=== PATIENT | female | born 1930 | race African-American/Black ===

== ENCOUNTER 2016-07-04 03:40 | Inpatient (IN) | payer MEDICARE, BC ==
[~2016-07-04] VITALS: Ht 165.1 cm; Wt 83.9 kg
[2016-07-04 04:00] VITALS: BP 149/74
[2016-07-04] MEDS ORDERED: ADALAT20 MG ORAL (05:14)
[2016-07-04] MEDS ORDERED: PLAVIX75 MG ORAL (05:14)
[2016-07-04] MEDS ORDERED: LOVASTATIN40 MG ORAL (05:14)
[2016-07-04] MEDS ORDERED: DIOVAN160 MG ORAL (05:14)
[2016-07-04] MEDS ORDERED: ASPIRIN81 MG ORAL (05:14)
[2016-07-04] MEDS ORDERED: HYDROCHLOROTH12.5 M2 ORAL (05:14)
[2016-07-04] MEDS ORDERED: LANTUS SOL100 UNIT/1 SUBQ (05:14)
[2016-07-04] MEDS ORDERED: Ketorolac 30mg Inj IV PRN (06:15)
[2016-07-04] MEDS ORDERED: Miralax 17gm pkt ORAL PRN (06:15)
[2016-07-04] MEDS ORDERED: Morphine Sulfate 2mg/ml Inj IVP PRN (06:15)
[2016-07-04] MEDS ORDERED: Nitroglycerin Subl 0.4mg tab (Bottle Of 25) SL PRN (06:15)
[2016-07-04] MEDS ORDERED: Mylanta II UD 30ml ORAL PRN (06:15)
[2016-07-04] MEDS: NovoLOG Insulin Flexpen SUBQ SCH ×4 (06:27→21:00)
[2016-07-04 08:00] VITALS: BP 138/70
--- NOTE | 2016-07-04 08:54 | Diagnostic Imaging Report ---
Indication: Shortness of breath Technique: XRAY CHEST 1 V Comparison: None Findings: Cardiac silhouette is mildly prominent. There is no consolidation. There is a linear opacity of the right midlung which could represent atelectasis or fissural thickening. There is no pneumothorax or obvious effusion. Degenerative changes of the spine are seen. Impression: Linear opacity of the right midlung which could represent atelectasis or fissural thickening. Otherwise no obvious acute cardiopulmonary disease.
[2016-07-04 10:44] LABS: BASOPHILS % (AUTO) 1.6 % (0.0-2.0); LYMPHOCYTES % (AUTO) 31.3 % (20.0-45.0); MEAN CORPUSCULAR HEMOGLOBIN 29.6 PG (27.0-31.0); MEAN CORPUSCULAR HGB CONC 31.9 G/DL (32.0-36.0); MEAN CORPUSCULAR VOLUME 93 FL (80-99); MEAN PLATELET VOLUME 5.3 FL (6.5-10.1); MONOCYTES % (AUTO) 8.8 % (1.0-10.0); NEUTROPHILS % (AUTO) 53.3 % (45.0-75.0); PLATELET COUNT 234 K/UL (150-450); RED BLOOD COUNT 3.15 M/UL (4.20-5.40); RED CELL DISTRIBUTION WIDTH 12.5 % (11.6-14.8); WHITE BLOOD COUNT 5.9 K/UL (4.8-10.8)
[2016-07-04 11:13] LABS: ALANINE AMINOTRANSFERASE 10 U/L (3-33); ALBUMIN/GLOBULIN RATIO 1.6 (1.0-2.7); ANION GAP 18 (5-15); ASPARTATE AMINO TRANSFERASE 14 U/L (5-40); CALCIUM 9.1 mg/dL (8.6-10.2); CARBON DIOXIDE 19 mEQ/L (20-30); CHLORIDE 104 mEQ/L (98-107); CREATININE 2.8 mg/dL (0.5-0.9); HEMOLYSIS 3; SODIUM 141 mEQ/L (135-145); TOTAL PROTEIN 6.3 g/dL (6.6-8.7); TROPONIN I < 0.30 ng/mL (<=0.30)
[2016-07-04 11:15] LABS: AMYLASE 41 U/L (10-110); LIPASE 11 U/L (< 60)
[2016-07-04 12:30] VITALS: BP 148/73
[2016-07-04] MEDS ORDERED: Aspirin Baby 81mg ORAL SCH (13:00)
[2016-07-04 16:00] VITALS: BP 138/66
--- NOTE | 2016-07-04 17:27 | History & Physical ---
History and Physical History & Physicial Dictated for Int Med-Dr Angeles no. [id number]. LEANDRA COSTELLO Jul 04, 2016 17:27
[2016-07-04 18:40] LABS: ANION GAP 15 (5-15); CALCIUM 8.9 mg/dL (8.6-10.2); CARBON DIOXIDE 20 mEQ/L (20-30); CHLORIDE 106 mEQ/L (98-107); CREATININE 2.9 mg/dL (0.5-0.9); HEMOLYSIS 4; POTASSIUM 4.9 mEQ/L (3.4-4.9); SODIUM 141 mEQ/L (135-145)
[2016-07-04 20:00] VITALS: BP 135/76
[2016-07-04] MEDS ORDERED: Atorvastatin 20mg tab ORAL SCH (21:00)
[2016-07-04] MEDS ORDERED: Heparin 5000 units/ml inj SUBQ SCH (21:00)
[2016-07-04] MEDS ORDERED: Miralax 17gm pkt ORAL SCH (21:00)
[2016-07-04] MEDS ORDERED: Levemir Flexpen SUBQ SCH (21:00)
[2016-07-05] VITALS: BP 127/60
--- NOTE | 2016-07-05 02:08 | Consultation ---
DATE OF CONSULTATION: 07/04/2016 CHIEF COMPLAINT: Constipation and abdominal pain. HISTORY OF PRESENT ILLNESS: This is a very pleasant 85-year-old female, admitted to the hospital with mainly complaint of chest pain, which at this time she denies any more. She has history of diabetes, high blood pressure, chronic constipation, and GI consult was requested for evaluation of the above. PAST MEDICAL HISTORY: 1. Chronic constipation. 2. Hypertension. 3. Diabetes. 4. Chronic renal insufficiency per patient. 5. Anemia per patient. PAST SURGICAL HISTORY: 1. Tubal ligation. 2. Hysterectomy. MEDICATIONS: Please see medication reconciliation list. ALLERGIES: To penicillin. SOCIAL HISTORY: The patient used to smoke for over 30 years, quit in 1987. Denies any alcohol or drug abuse. FAMILY HISTORY: Noncontributory. REVIEW OF SYSTEMS: A 10-point review of system was performed and pertinent positives in history of present illness. PHYSICAL EXAMINATION: GENERAL: This is a well-developed female. VITAL SIGNS: Temperature 97.7 degrees, pulse 75, respirations 22, and blood pressure 149/74. HEENT: Normocephalic and atraumatic. Sclerae anicteric. NECK: Supple. No evidence of lymphadenopathy. CARDIOVASCULAR: Regular rhythm. Plus S1 and S2. No obvious murmur. LUNGS: Clear to auscultation bilaterally. ABDOMEN: Positive bowel sounds. Soft and nontender. No rebound. No guarding. No peritoneal sign. EXTREMITIES: No cyanosis, no clubbing, no edema. LABORATORY DATA: Laboratories are pending. ASSESSMENT AND PLAN: 1. Anemia. 2. Renal insufficiency. 3. Hypertension. 4. Diabetes. 5. Chronic constipation. PLAN: 1. Start 1800 ADA diet. 2. Anemia workup. 3. Follow with Cardiology regarding chest pain. 4. Follow laboratories and make further recommendation when the laboratories are back. Hemal Narvaez M.D. DR: DANIEL JOB#: [id number] CC:
[2016-07-05] MEDS ORDERED: Nitroglycerin Subl 0.4mg tab (Bottle Of 25) SL PRN (03:30)
[2016-07-05 04:00] VITALS: BP 127/65
[2016-07-05] MEDS ORDERED: Morphine Sulfate 2mg/ml Inj IVP PRN (05:00)
[2016-07-05] MEDS ORDERED: Ketorolac 30mg Inj IV PRN (06:15)
[2016-07-05] MEDS ORDERED: Miralax 17gm pkt ORAL PRN (06:15)
[2016-07-05] MEDS ORDERED: Mylanta II UD 30ml ORAL PRN (06:15)
[2016-07-05] MEDS: NovoLOG Insulin Flexpen SUBQ SCH ×4 (06:28→21:00)
--- NOTE | 2016-07-05 07:07 | History and Physical Report ---
DATE OF ADMISSION: 07/04/2016 CHIEF COMPLAINT: The patient is an 85-year-old female, presents with complaint of chest pain. HISTORY OF PRESENT ILLNESS: On July 03, 2016, the patient began to experience some substernal chest pain. The pain did not radiate to the jaw or to the shoulder. The patient presented to [facility]. Initial troponin level was within normal limits. The patient is transferred to [facility] for insurance reasons. The patient is admitted for chest pain to rule out acute coronary syndrome. REVIEW OF SYSTEMS: Constitutional: The patient denies weight loss or weight gain. The patient denies fevers or chills. HEENT: The patient denies ear or throat pain. Cardiovascular: The patient complains of chest pain as above. The patient denies palpitations. Abdomen: The patient denies nausea, vomiting, diarrhea, or constipation. Genitourinary: The patient denies dysuria or increased frequency of urination. Neurologic: The patient denies seizures or generalized weakness. PAST MEDICAL HISTORY: Significant for: 1. Hypertension. 2. Diabetes type 2. 3. Anemia. 4. Hypercholesterolemia. PAST SURGICAL HISTORY: Significant for total abdominal hysterectomy. CURRENT MEDICATIONS: 1. [place] 5/325 mg one tablet p.o. every 4 hours as needed. 2. Nifedipine of an unknown dose daily. 3. Plavix 75 mg one tablet p.o. daily. 4. Mevacor 40 mg one tablet p.o. daily. 5. Hydrochlorothiazide 12.5 mg one tablet p.o. daily. 6. Lantus insulin of an unknown dose by p.o. daily. 7. Diovan 160 mg 1 tablet by mouth daily. 8. Ultram 50 mg one tablet p.o. every 4 hours as needed. 9. Antivert 25 mg one tablet p.o. 3 times daily as needed. ALLERGIES: Penicillin. SOCIAL HISTORY: The patient is single. The patient denies tobacco or alcohol use. PHYSICAL EXAMINATION: VITAL SIGNS: Temperature 97.3, pulse 73, blood pressure 138/70, respiratory 20. GENERAL: The patient is well-developed and well-nourished female, no apparent distress. HEENT: Eyes, pupils are equal and responsive to light and accommodation. Extraocular movements are intact. NECK: Supple. No lymphadenopathy. CHEST: Lungs are clear to auscultation bilaterally without wheezes or rales. CARDIOVASCULAR: Regular rhythm and rate. S1 and S2 normal without murmurs, rubs, or gallops. ABDOMEN: Soft, nontender, and nondistended. Positive bowel sounds. No evidence of hepatosplenomegaly. Currently, no guarding. EXTREMITIES: Negative for clubbing, cyanosis, or edema. RECTAL/GENITAL: Refused. NEUROLOGIC: Cranial nerves II through XII are grossly intact without focal deficits. Motor strength is 5/5 bilaterally. Deep tendon reflexes 2+ plantar. LABORATORY STUDIES: WBC 5.9, hemoglobin 9.2, hematocrit 29.3, and platelets 234,000. Sodium 141, potassium elevated at 5.0, chloride 104, CO2 19, BUN 31, creatinine 2.8, glucose 97, and serum troponin level less than 0.3. ASSESSMENT: This is an 85-year-old female: 1. Chest pain. 2. Diabetes type 2. 3. Hypertension. 4. Hypercholesterolemia. 5. Renal failure. TREATMENT: 1. Chest pain. Cardiology consultation by Dr. Franklin Ceron. Serial troponin levels will be run. A Cardiolite stress test is pending. We will follow recommendations of Cardiology. 2. Diabetes type 2. The patient has been placed on a NovoLog sliding scale. Accu-Cheks will be for performed daily and at bedtime. 3. Hypertension. Continue nifedipine and Avapro as above. 4. Hypercholesterolemia. Continue Mevacor as above. 5. Renal failure. A renal ultrasound is pending. A Nephrology consultation with Dr. Brasher. This may be prerenal secondary to dehydration. The patient is currently receiving intravenous fluids. We will follow recommendation of Nephrology. Spencer Lopez M.D. DR: Susanne JOB#: [id number] CC:
[2016-07-05 07:54] LABS: BASOPHILS % (AUTO) 1.3 % (0.0-2.0); LYMPHOCYTES % (AUTO) 31.8 % (20.0-45.0); MEAN CORPUSCULAR HEMOGLOBIN 29.9 PG (27.0-31.0); MEAN CORPUSCULAR VOLUME 93 FL (80-99); MEAN PLATELET VOLUME 5.8 FL (6.5-10.1); NEUTROPHILS % (AUTO) 52.9 % (45.0-75.0); PLATELET COUNT 250 K/UL (150-450); RED BLOOD COUNT 3.12 M/UL (4.20-5.40); RED CELL DISTRIBUTION WIDTH 12.4 % (11.6-14.8)
[2016-07-05 08:00] VITALS: BP 140/71
[2016-07-05 08:02] LABS: PROTHROMBIN TIME 10.1 SEC (9.30-11.50)
[2016-07-05 08:28] LABS: ALANINE AMINOTRANSFERASE 10 U/L (3-33); ALBUMIN/GLOBULIN RATIO 1.2 (1.0-2.7); AMYLASE 48 U/L (10-110); ANION GAP 18 (5-15); ASPARTATE AMINO TRANSFERASE 15 U/L (5-40); CARBON DIOXIDE 19 mEQ/L (20-30); CHLORIDE 105 mEQ/L (98-107); HEMOLYSIS 3; LIPASE 12 U/L (< 60); POTASSIUM 4.8 mEQ/L (3.4-4.9); SODIUM 142 mEQ/L (135-145)
[2016-07-05 08:32] LABS: HEMOLYSIS 4; IRON 48 ug/dL (37-145); TOTAL IRON BINDING CAPACITY 227 ug/dL (250-400)
[2016-07-05 08:49] LABS: BILIRUBIN,DIRECT 0.1 mg/dL (0.1-0.3); TOTAL PROTEIN 6.5 g/dL (6.6-8.7)
[2016-07-05 08:53] LABS: TROPONIN I < 0.30 ng/mL (<=0.30)
[2016-07-05 08:55] LABS: HEMOGLOBIN A1C 5.3 % (< 6.0)
[2016-07-05] MEDS ORDERED: Irbesartan 150mg tablet ORAL SCH (09:00)
[2016-07-05] MEDS: Irbesartan 150mg tablet ORAL SCH (09:44)
[2016-07-05] MEDS: Aspirin Baby 81mg ORAL SCH (09:44)
[2016-07-05] MEDS: Heparin 5000 units/ml inj SUBQ SCH ×2 (09:46→21:52)
[2016-07-05 12:00] VITALS: BP 142/72
--- NOTE | 2016-07-05 12:01 | GI Progress Note ---
Assessment/Plan Problems: (1) Constipated ICD Codes: K59.00 - Constipation, unspecified SNOMED: 37901473 (2) Anemia ICD Codes: D64.9 - Anemia, unspecified SNOMED: 368009898 (3) Diabetes mellitus ICD Codes: E11.9 - Type 2 diabetes mellitus without complications SNOMED: 68400999 (4) Intractable abdominal pain ICD Codes: R10.9 - Unspecified abdominal pain SNOMED: 17671686, 777904112 Status: stable, unchanged Status Narrative Discussed with Dr. Narvaez. Assessment/Plan ASSESSMENT AND PLAN: 1. Anemia. 2. Renal insufficiency. 3. Hypertension. 4. Diabetes. 5. Chronic constipation. PLAN: possible EGD/colonoscopy Tuesday pending stress test ADA diet bowel regime OB stool uncollected H2 fu labs Subjective Gastrointestinal/Abdominal: Reports: constipated Objective Last 24 Hour Vital Signs Date Time Temp Pulse Resp B/P Pulse Ox O2 Delivery O2 Flow Rate FiO2 07/05/16 10:27 69 140/71 07/05/16 10:26 69 140/71 07/05/16 09:44 140/71 07/05/16 08:00 68 07/05/16 08:00 97.2 69 17 140/71 99 Room Air 07/05/16 04:00 67 07/05/16 04:00 97.9 74 16 127/65 98 Room Air 07/05/16 00:00 97.3 67 18 127/60 100 Room Air 07/05/16 00:00 68 07/04/16 20:00 97.3 76 15 135/76 100 Room Air 07/04/16 20:00 75 07/04/16 16:00 68 07/04/16 16:00 96.6 71 15 138/66 98 Room Air 07/04/16 13:18 74 148/73 07/04/16 12:30 97.7 74 20 148/73 98 Room Air 07/04/16 12:00 74 Intake and Output 07/04/16 07/05/16 19:00 07:00 Intake Total 1120 ml 325 ml Output Total 750 ml Balance 370 ml 325 ml Intake Oral 460 ml IV Total 650 ml 325 ml Other 10 ml Output Urine Total 750 ml # Voids 3 3 Laboratory Tests Test 07/04/16 17:40 07/05/16 06:50 Sodium Level 141 mEQ/L (135-145) 142 mEQ/L (135-145) Potassium Level 4.9 mEQ/L (3.4-4.9) 4.8 mEQ/L (3.4-4.9) Chloride Level 106 mEQ/L (98-107) 105 mEQ/L (98-107) Carbon Dioxide Level 20 mEQ/L (20-30) 19 mEQ/L (20-30) L Anion Gap 15 (5-15) 18 (5-15) H Blood Urea Nitrogen 35 mg/dL (7-23) H 37 mg/dL (7-23) H Creatinine 2.9 mg/dL (0.5-0.9) H 3.0 mg/dL (0.5-0.9) H Estimat Glomerular Filtration Rate mL/min (>60) mL/min (>60) Glucose Level 114 mg/dL (74-106) H 72 mg/dL (74-106) L Calcium Level 8.9 mg/dL (8.6-10.2) 9.0 mg/dL (8.6-10.2) White Blood Count 6.0 K/UL (4.8-10.8) Red Blood Count 3.12 M/UL (4.20-5.40) L Hemoglobin 9.3 G/DL (12.0-16.0) L Hematocrit 29.2 % (37.0-47.0) L Mean Corpuscular Volume 93 FL (80-99) Mean Corpuscular Hemoglobin 29.9 PG (27.0-31.0) Mean Corpuscular Hemoglobin Concent 32.0 G/DL (32.0-36.0) Red Cell Distribution Width 12.4 % (11.6-14.8) Platelet Count 250 K/UL (150-450) Mean Platelet Volume 5.8 FL (6.5-10.1) L Neutrophils (%) (Auto) 52.9 % (45.0-75.0) Lymphocytes (%) (Auto) 31.8 % (20.0-45.0) Monocytes (%) (Auto) 9.0 % (1.0-10.0) Eosinophils (%) (Auto) 5.0 % (0.0-3.0) H Basophils (%) (Auto) 1.3 % (0.0-2.0) Prothrombin Time 10.1 SEC (9.30-11.50) Prothromb Time International Ratio 1.0 (0.9-1.1) Activated Partial Thromboplast Time 25 SEC (23-33) Hemoglobin A1c 5.3 % (< 6.0) Iron Level 48 ug/dL (37-145) Total Iron Binding Capacity 227 ug/dL (250-400) L Percent Iron Saturation 21 % (15-50) Unsaturated Iron Binding 179 ug/dL (112-346) Total Bilirubin 0.2 mg/dL (0.0-1.2) Direct Bilirubin 0.1 mg/dL (0.1-0.3) Aspartate Amino Transf (AST/SGOT) 15 U/L (5-40) Alanine Aminotransferase (ALT/SGPT) 9 U/L (3-33) Alkaline Phosphatase 73 U/L (35-104) Troponin I < 0.30 ng/mL (<=0.30) Total Protein 6.5 g/dL (6.6-8.7) L Albumin 4.0 g/dL (3.5-5.2) Globulin 3.1 g/dL Albumin/Globulin Ratio 1.2 (1.0-2.7) Amylase Level 48 U/L (10-110) Lipase 12 U/L (< 60) Thyroid Stimulating Hormone (TSH) 3.110 uIU/mL (0.300-4.500) Height (Feet): 5 Height (Inches): 5.00 Weight (Pounds): 185 General Appearance: no apparent distress, alert Cardiovascular: normal rate Respiratory/Chest: lungs clear, normal breath sounds Abdominal Exam: non tender, soft Priscila Freeman N.PBritney Jul 05, 2016 12:01
--- NOTE | 2016-07-05 12:50 | Internal Med Progress Note ---
Subjective Date of Service: Jul 05, 2016 Physician Name Leandra Costello Attending Physician Joe Angeles MD Current Medications Medications (Trade) Dose Ordered Sig/Bryce Route PRN Reason Start Time Stop Time Status Last Admin Dose Admin Acetaminophen (Tylenol) 650 mg Q4H PRN ORAL fever 07/05/16 06:15 08/04/16 06:14 Al Hydroxide/Mg Hydroxide (Mylanta II) 30 ml Q6H PRN ORAL dyspepsia 07/05/16 06:15 08/04/16 06:14 Aspirin (ASA) 81 mg DAILY ORAL 07/05/16 09:00 08/04/16 08:59 07/05/16 09:44 Atorvastatin Calcium (Lipitor) 20 mg BEDTIME ORAL 07/05/16 21:00 08/04/16 20:59 Clopidogrel Bisulfate (Plavix) 75 mg DAILY ORAL 07/05/16 09:00 08/04/16 08:59 07/05/16 09:44 Dextrose (Dextrose 50%) STAT PRN IV Hypoglycemia 07/05/16 06:15 08/04/16 06:14 Diphenhydramine HCl (Benadryl) 25 mg Q6H PRN ORAL Itching/Pruritis 07/05/16 06:15 08/04/16 06:14 Docusate Sodium (Colace) 100 mg THREE TIMES A DAY ORAL 07/05/16 13:00 08/04/16 12:59 Famotidine (Pepcid I.v.) 20 mg Q12HR IVP 07/05/16 21:00 08/04/16 20:59 Heparin Sodium (Porcine) (Heparin 5000 units/ml) 5,000 units EVERY 12 HOURS SUBQ 07/05/16 09:00 08/04/16 08:59 07/05/16 09:46 Hydrochlorothiazide (Hydrodiuril) 12.5 mg DAILY ORAL 07/05/16 09:00 08/04/16 08:59 07/05/16 09:43 Insulin Aspart (NovoLOG) BEFORE MEALS AND HS SUBQ 07/05/16 06:30 08/04/16 06:29 Insulin Detemir (Levemir) 10 units BEDTIME SUBQ 07/05/16 21:00 08/04/16 20:59 Irbesartan (Avapro) 150 mg DAILY ORAL 07/05/16 09:00 08/04/16 08:59 07/05/16 09:44 Ketorolac Tromethamine (Toradol 30mg) 15 mg Q6H PRN IV moderate pian 4-6 07/05/16 06:15 07/10/16 06:14 UNV Morphine Sulfate (Morphine Sulfate) 2 mg Q4H PRN IVP severe Pain (Pain Scale 7-10) 07/05/16 05:00 07/12/16 04:59 Nifedipine (Procardia XL) 90 mg DAILY ORAL 07/05/16 11:00 08/04/16 10:59 07/05/16 10:27 Nitroglycerin (Ntg) 0.4 mg Q5M X 3 DOSES PRN SL Prn Chest Pain 07/05/16 03:30 08/04/16 03:29 Ondansetron HCl (Zofran) 4 mg Q6H PRN IVP Nausea & Vomiting 07/05/16 06:15 08/04/16 06:14 Polyethylene Glycol (Miralax) 17 gm BEDTIME ORAL 07/05/16 21:00 08/04/16 20:59 Polyethylene Glycol (Miralax) 17 gm HSPRN PRN ORAL Constipation 07/05/16 06:15 08/04/16 06:14 Sodium Chloride (Sodium Chloride 1000ml bag) 1,000 ml @ 50 mls/hr Q20H IV 07/05/16 03:30 08/04/16 03:29 07/05/16 03:30 Temazepam (Restoril) 15 mg HSPRN PRN ORAL Insomnia 07/05/16 06:15 07/12/16 06:14 Allergies: Coded Allergies: PENICILLIN G (Verified Allergy, Intermediate, 07/04/16) Verified on 07/03/2016 from [facility] Limited/Unobtainable: No Constitutional: Reports: no symptoms HEENT: Reports: no symptoms Cardiovascular: Reports: chest pain Respiratory: Reports: no symptoms Gastrointestinal/Abdominal: Reports: no symptoms Genitourinary: Reports: no symptoms Neurologic/Psychiatric: Reports: no symptoms Subjective 85 YO F admitted with chest pain. Cover for Int Smiley Angeles Objective Last Vital Signs Date Time Temp Pulse Resp B/P Pulse Ox O2 Delivery O2 Flow Rate FiO2 07/05/16 10:27 69 140/71 07/05/16 08:00 97.2 17 99 Room Air General Appearance: WD/WN, no apparent distress, alert EENT: PERRL/EOMI, normal ENT inspection Neck: non-tender, normal alignment, supple, normal inspection Cardiovascular: normal peripheral pulses, normal rate, regular rhythm, no gallop/murmur, no JVD Respiratory/Chest: chest wall non-tender, lungs clear, normal breath sounds, no respiratory distress, no accessory muscle use Abdomen: normal bowel sounds, non tender, soft, no organomegaly, no mass Extremities: normal range of motion, non-tender Neurologic: spouter II-XII grossly normal Skin: normal pigmentation, warm/dry Laboratory Tests Test 07/04/16 17:40 07/05/16 06:50 Sodium Level 141 mEQ/L (135-145) 142 mEQ/L (135-145) Potassium Level 4.9 mEQ/L (3.4-4.9) 4.8 mEQ/L (3.4-4.9) Chloride Level 106 mEQ/L (98-107) 105 mEQ/L (98-107) Carbon Dioxide Level 20 mEQ/L (20-30) 19 mEQ/L (20-30) L Anion Gap 15 (5-15) 18 (5-15) H Blood Urea Nitrogen 35 mg/dL (7-23) H 37 mg/dL (7-23) H Creatinine 2.9 mg/dL (0.5-0.9) H 3.0 mg/dL (0.5-0.9) H Estimat Glomerular Filtration Rate mL/min (>60) mL/min (>60) Glucose Level 114 mg/dL (74-106) H 72 mg/dL (74-106) L Calcium Level 8.9 mg/dL (8.6-10.2) 9.0 mg/dL (8.6-10.2) White Blood Count 6.0 K/UL (4.8-10.8) Red Blood Count 3.12 M/UL (4.20-5.40) L Hemoglobin 9.3 G/DL (12.0-16.0) L Hematocrit 29.2 % (37.0-47.0) L Mean Corpuscular Volume 93 FL (80-99) Mean Corpuscular Hemoglobin 29.9 PG (27.0-31.0) Mean Corpuscular Hemoglobin Concent 32.0 G/DL (32.0-36.0) Red Cell Distribution Width 12.4 % (11.6-14.8) Platelet Count 250 K/UL (150-450) Mean Platelet Volume 5.8 FL (6.5-10.1) L Neutrophils (%) (Auto) 52.9 % (45.0-75.0) Lymphocytes (%) (Auto) 31.8 % (20.0-45.0) Monocytes (%) (Auto) 9.0 % (1.0-10.0) Eosinophils (%) (Auto) 5.0 % (0.0-3.0) H Basophils (%) (Auto) 1.3 % (0.0-2.0) Prothrombin Time 10.1 SEC (9.30-11.50) Prothromb Time International Ratio 1.0 (0.9-1.1) Activated Partial Thromboplast Time 25 SEC (23-33) Hemoglobin A1c 5.3 % (< 6.0) Iron Level 48 ug/dL (37-145) Total Iron Binding Capacity 227 ug/dL (250-400) L Percent Iron Saturation 21 % (15-50) Unsaturated Iron Binding 179 ug/dL (112-346) Total Bilirubin 0.2 mg/dL (0.0-1.2) Direct Bilirubin 0.1 mg/dL (0.1-0.3) Aspartate Amino Transf (AST/SGOT) 15 U/L (5-40) Alanine Aminotransferase (ALT/SGPT) 9 U/L (3-33) Alkaline Phosphatase 73 U/L (35-104) Troponin I < 0.30 ng/mL (<=0.30) Total Protein 6.5 g/dL (6.6-8.7) L Albumin 4.0 g/dL (3.5-5.2) Globulin 3.1 g/dL Albumin/Globulin Ratio 1.2 (1.0-2.7) Amylase Level 48 U/L (10-110) Lipase 12 U/L (< 60) Thyroid Stimulating Hormone (TSH) 3.110 uIU/mL (0.300-4.500) Intake and Output 07/04/16 07/05/16 19:00 07:00 Intake Total 1120 ml 325 ml Output Total 750 ml Balance 370 ml 325 ml Intake Oral 460 ml IV Total 650 ml 325 ml Other 10 ml Output Urine Total 750 ml # Voids 3 3 Assessment/Plan Problem List: (1) Chest pain Assessment & Plan: Await cardiology consult. Serial troponin (2) HTN (hypertension) Assessment & Plan: Continue procardia (3) Hypercholesteremia (4) Renal failure Assessment & Plan: Await nephrology consult (5) Diabetes mellitus Assessment & Plan: cont levemir and novolog sliding scale. (6) Anemia Status: unchanged LEANDRA COSTELLO Jul 05, 2016 12:50
[2016-07-05] MEDS ORDERED: Adenosine Inj IVP ONE (13:30)
[2016-07-05] MEDS: Docusate 100mg cap ORAL SCH ×2 (14:41→18:00)
--- NOTE | 2016-07-05 15:19 | Consultation ---
History of Present Illness General Date patient seen: Jul 05, 2016 Chief Complaint: chest pain Referring physician: Dr. Lopez Reason for Consultation: Chest pain Present Illness HPI 85 year old female with hx of DM type 2, HTN, anemia, was taken by paramedics to [facility] with CC of palpitation, chest pain. She also apparently stopped taking her insulin because her BS was too low. After an acute OR was ruled out she was transferred to [facility] for further w/u of her various problems, including palpitation, chest pain, chronic anemia. Pt is a poor historian, doesn't remember her doc's name. [place] [facility] [place]. Allergies: Coded Allergies: PENICILLIN G (Verified Allergy, Intermediate, 07/04/16) Verified on 07/03/2016 from [facility] ADENOSINE (Verified Adverse Reaction, Unknown, heart block, 07/05/16) developed 2nd degree heart block during Adenosine stress test. Test stopped Medication History Scheduled Aspirin* (Aspirin*), 81 MG ORAL DAILY, (Reported) Clopidogrel Bisulfate* (Plavix*), 75 MG ORAL DAILY, (Reported) Hydrochlorothiazide* (Hydrochlorothiazide*), 12.5 MG ORAL DAILY, (Reported) Insulin Glargine (Lantus), 0 SUBQ BEDTIME, (Reported) Lovastatin (Lovastatin), 40 MG ORAL BEDTIME, (Reported) Nifedipine (Nifedipine*), 90 MG ORAL DAILY, (Reported) Valsartan (Diovan), 160 MG ORAL DAILY, (Reported) Patient History Healthcare decision maker Resuscitation status Full Code Advanced Directive on File No Past Medical/Surgical History Past Medical/Surgical History: (1) HTN (hypertension) (2) Anemia (3) Diabetes mellitus Review of Systems Constitutional: Reports: no symptoms Eye: Reports: no symptoms, other Respiratory: Reports: no symptoms Cardiovascular: Reports: palpitations Gastrointestinal: Reports: no symptoms Genitourinary: Reports: no symptoms Musculoskeletal: Reports: no symptoms Skin: Reports: no symptoms Physical Exam General Appearance: WD/WN Lines, tubes and drains: peripheral Neck: non-tender, normal alignment Respiratory/Chest: chest wall non-tender, lungs clear Breasts: no masses Cardiovascular/Chest: normal peripheral pulses Genitourinary/Rectal: normal genital exam Extremities: normal range of motion 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 Last 24 Hour Vital Signs Date Time Temp Pulse Resp B/P Pulse Ox O2 Delivery O2 Flow Rate FiO2 07/05/16 12:00 96.9 69 17 142/72 98 Room Air 07/05/16 12:00 67 07/05/16 10:27 69 140/71 07/05/16 10:26 69 140/71 07/05/16 09:44 140/71 07/05/16 08:00 68 07/05/16 08:00 97.2 69 17 140/71 99 Room Air 07/05/16 04:00 67 07/05/16 04:00 97.9 74 16 127/65 98 Room Air 07/05/16 00:00 97.3 67 18 127/60 100 Room Air 07/05/16 00:00 68 07/04/16 20:00 97.3 76 15 135/76 100 Room Air 07/04/16 20:00 75 07/04/16 16:00 68 07/04/16 16:00 96.6 71 15 138/66 98 Room Air Intake and Output 07/04/16 07/05/16 19:00 07:00 Intake Total 1120 ml 325 ml Output Total 750 ml Balance 370 ml 325 ml Intake Oral 460 ml IV Total 650 ml 325 ml Other 10 ml Output Urine Total 750 ml # Voids 3 3 Laboratory Tests Test 07/04/16 17:40 07/05/16 06:50 Sodium Level 141 mEQ/L (135-145) 142 mEQ/L (135-145) Potassium Level 4.9 mEQ/L (3.4-4.9) 4.8 mEQ/L (3.4-4.9) Chloride Level 106 mEQ/L (98-107) 105 mEQ/L (98-107) Carbon Dioxide Level 20 mEQ/L (20-30) 19 mEQ/L (20-30) L Anion Gap 15 (5-15) 18 (5-15) H Blood Urea Nitrogen 35 mg/dL (7-23) H 37 mg/dL (7-23) H Creatinine 2.9 mg/dL (0.5-0.9) H 3.0 mg/dL (0.5-0.9) H Estimat Glomerular Filtration Rate mL/min (>60) mL/min (>60) Glucose Level 114 mg/dL (74-106) H 72 mg/dL (74-106) L Calcium Level 8.9 mg/dL (8.6-10.2) 9.0 mg/dL (8.6-10.2) White Blood Count 6.0 K/UL (4.8-10.8) Red Blood Count 3.12 M/UL (4.20-5.40) L Hemoglobin 9.3 G/DL (12.0-16.0) L Hematocrit 29.2 % (37.0-47.0) L Mean Corpuscular Volume 93 FL (80-99) Mean Corpuscular Hemoglobin 29.9 PG (27.0-31.0) Mean Corpuscular Hemoglobin Concent 32.0 G/DL (32.0-36.0) Red Cell Distribution Width 12.4 % (11.6-14.8) Platelet Count 250 K/UL (150-450) Mean Platelet Volume 5.8 FL (6.5-10.1) L Neutrophils (%) (Auto) 52.9 % (45.0-75.0) Lymphocytes (%) (Auto) 31.8 % (20.0-45.0) Monocytes (%) (Auto) 9.0 % (1.0-10.0) Eosinophils (%) (Auto) 5.0 % (0.0-3.0) H Basophils (%) (Auto) 1.3 % (0.0-2.0) Prothrombin Time 10.1 SEC (9.30-11.50) Prothromb Time International Ratio 1.0 (0.9-1.1) Activated Partial Thromboplast Time 25 SEC (23-33) Hemoglobin A1c 5.3 % (< 6.0) Iron Level 48 ug/dL (37-145) Total Iron Binding Capacity 227 ug/dL (250-400) L Percent Iron Saturation 21 % (15-50) Unsaturated Iron Binding 179 ug/dL (112-346) Total Bilirubin 0.2 mg/dL (0.0-1.2) Direct Bilirubin 0.1 mg/dL (0.1-0.3) Aspartate Amino Transf (AST/SGOT) 15 U/L (5-40) Alanine Aminotransferase (ALT/SGPT) 9 U/L (3-33) Alkaline Phosphatase 73 U/L (35-104) Troponin I < 0.30 ng/mL (<=0.30) Total Protein 6.5 g/dL (6.6-8.7) L Albumin 4.0 g/dL (3.5-5.2) Globulin 3.1 g/dL Albumin/Globulin Ratio 1.2 (1.0-2.7) Amylase Level 48 U/L (10-110) Lipase 12 U/L (< 60) Thyroid Stimulating Hormone (TSH) 3.110 uIU/mL (0.300-4.500) Height (Feet): 5 Height (Inches): 5.00 Weight (Pounds): 185 Medications Current Medications Medications (Trade) Dose Ordered Sig/Bryce Route PRN Reason Start Time Stop Time Status Last Admin Dose Admin Acetaminophen (Tylenol) 650 mg Q4H PRN ORAL fever 07/05/16 06:15 08/04/16 06:14 Al Hydroxide/Mg Hydroxide (Mylanta II) 30 ml Q6H PRN ORAL dyspepsia 07/05/16 06:15 08/04/16 06:14 Aspirin (ASA) 81 mg DAILY ORAL 07/05/16 09:00 08/04/16 08:59 07/05/16 09:44 Atorvastatin Calcium (Lipitor) 20 mg BEDTIME ORAL 07/05/16 21:00 08/04/16 20:59 Clopidogrel Bisulfate (Plavix) 75 mg DAILY ORAL 07/05/16 09:00 08/04/16 08:59 07/05/16 09:44 Dextrose (Dextrose 50%) STAT PRN IV Hypoglycemia 07/05/16 06:15 08/04/16 06:14 Diphenhydramine HCl (Benadryl) 25 mg Q6H PRN ORAL Itching/Pruritis 07/05/16 06:15 08/04/16 06:14 Docusate Sodium (Colace) 100 mg THREE TIMES A DAY ORAL 07/05/16 13:00 08/04/16 12:59 07/05/16 14:41 Famotidine (Pepcid I.v.) 20 mg Q12HR IVP 07/05/16 21:00 08/04/16 20:59 Heparin Sodium (Porcine) (Heparin 5000 units/ml) 5,000 units EVERY 12 HOURS SUBQ 07/05/16 09:00 08/04/16 08:59 07/05/16 09:46 Hydrochlorothiazide (Hydrodiuril) 12.5 mg DAILY ORAL 07/05/16 09:00 08/04/16 08:59 07/05/16 09:43 Insulin Aspart (NovoLOG) BEFORE MEALS AND HS SUBQ 07/05/16 06:30 08/04/16 06:29 Insulin Detemir (Levemir) 10 units BEDTIME SUBQ 07/05/16 21:00 08/04/16 20:59 Irbesartan (Avapro) 150 mg DAILY ORAL 07/05/16 09:00 08/04/16 08:59 07/05/16 09:44 Ketorolac Tromethamine (Toradol 30mg) 15 mg Q6H PRN IV moderate pian 4-6 07/05/16 06:15 07/10/16 06:14 UNV Morphine Sulfate (Morphine Sulfate) 2 mg Q4H PRN IVP severe Pain (Pain Scale 7-10) 07/05/16 05:00 07/12/16 04:59 Nifedipine (Procardia XL) 90 mg DAILY ORAL 07/05/16 11:00 08/04/16 10:59 07/05/16 10:27 Nitroglycerin (Ntg) 0.4 mg Q5M X 3 DOSES PRN SL Prn Chest Pain 07/05/16 03:30 08/04/16 03:29 Ondansetron HCl (Zofran) 4 mg Q6H PRN IVP Nausea & Vomiting 07/05/16 06:15 08/04/16 06:14 Polyethylene Glycol (Miralax) 17 gm BEDTIME ORAL 07/05/16 21:00 08/04/16 20:59 Polyethylene Glycol (Miralax) 17 gm HSPRN PRN ORAL Constipation 07/05/16 06:15 08/04/16 06:14 Sodium Chloride (Sodium Chloride 1000ml bag) 1,000 ml @ 50 mls/hr Q20H IV 07/05/16 03:30 08/04/16 03:29 07/05/16 03:30 Temazepam (Restoril) 15 mg HSPRN PRN ORAL Insomnia 07/05/16 06:15 07/12/16 06:14 Assessment/Plan Problem List: (1) Chest pain ICD Codes: R07.9 - Chest pain, unspecified SNOMED: 36850921 Qualifiers: Qualified Codes: R07.9 - Chest pain, unspecified (2) Renal failure ICD Codes: N19 - Unspecified kidney failure SNOMED: 07919219 (3) Anemia ICD Codes: D64.9 - Anemia, unspecified SNOMED: 641466394 Qualifiers: (4) Diabetes mellitus ICD Codes: E11.9 - Type 2 diabetes mellitus without complications SNOMED: 31139061 Qualifiers: (5) Hypercholesteremia ICD Codes: E78.00 - Pure hypercholesterolemia, unspecified SNOMED: 19228970 (6) HTN (hypertension) ICD Codes: I10 - Essential (primary) hypertension SNOMED: 34912414 Qualifiers: Qualified Codes: I10 - Essential (primary) hypertension Assessment/Plan serial ekg, troponin, echo f/u cardio recommendation anemia work up including iron studies sliding scale, and diabetic diet check hem a1C look for occult malignancy considering age and severe anemia pt/ot when medically stable DANNY REYES Jul 05, 2016 15:19
--- NOTE | 2016-07-05 15:31 | Consultation ---
Consult Note Consult Note asked to evaluate for renal failure- The patient is an 85-year-old female, presents with complaint of chest pain. On July 03, 2016, the patient began to experience some substernal chest pain. The pain did not radiate to the jaw or to the shoulder. The patient presented to [place] [facility]. Initial troponin level was within normal limits. The patient is transferred to [facility] for insurance reasons. The patient is admitted for chest pain to rule out acute coronary syndrome. . Assessment/Plan Renal failure likely chronic due to long history of DM and HTN no UA available- Admitted with chest pain, high risk for CAD. other conditions: 1. Chronic constipation. 2. Hypertension. 3. Diabetes. 4. Chronic renal insufficiency per patient. 5. Anemia per patient. Past surgeries: 1. Tubal ligation. 2. Hysterectomy. Plan: DC HCTZ- Slow Hydrate- Monitor renal parameters- check urine analysis and urine studies- Avoid nephrotoxics- per orders HENRY BORDEN Jul 05, 2016 15:31
[2016-07-05 16:00] VITALS: BP 139/69
[2016-07-05 16:57] LABS: APPEARANCE,URINE CLEAR; KETONES,URINE NEGATIVE (NEGATIVE); LEUKOCYTE ESTERASE ,URINE 3+ (NEGATIVE); NITRITE,URINE NEGATIVE (NEGATIVE); PH,URINE 6.5 (4.5-8.0); PROTEIN,URINE 3+ (NEGATIVE); UROBILINOGEN,URINE NORMAL MG/DL (0.0-1.0)
[2016-07-05 17:22] LABS: AMORPHOUS SEDIMENT,UR FEW /LPF; BACTERIA,URINE MODERATE /HPF; SQUAMOUS EPITHELIAL CELL,UR FEW /LPF (NONE/OCC)
--- NOTE | 2016-07-05 18:05 | Cardiac Electrophysiology PN ---
Subjective Subjective [id number] Objective Last 24 Hour Vital Signs Date Time Temp Pulse Resp B/P Pulse Ox O2 Delivery O2 Flow Rate FiO2 07/05/16 16:00 96.1 77 18 139/69 99 Room Air 07/05/16 12:00 96.9 69 17 142/72 98 Room Air 07/05/16 12:00 67 07/05/16 10:27 69 140/71 07/05/16 10:26 69 140/71 07/05/16 09:44 140/71 07/05/16 08:00 68 07/05/16 08:00 97.2 69 17 140/71 99 Room Air 07/05/16 04:00 67 07/05/16 04:00 97.9 74 16 127/65 98 Room Air 07/05/16 00:00 97.3 67 18 127/60 100 Room Air 07/05/16 00:00 68 07/04/16 20:00 97.3 76 15 135/76 100 Room Air 07/04/16 20:00 75 Intake and Output 07/04/16 07/05/16 19:00 07:00 Intake Total 1120 ml 325 ml Output Total 750 ml Balance 370 ml 325 ml Intake Oral 460 ml IV Total 650 ml 325 ml Other 10 ml Output Urine Total 750 ml # Voids 3 3 Laboratory Tests Test 07/05/16 06:50 07/05/16 16:00 White Blood Count 6.0 K/UL (4.8-10.8) Red Blood Count 3.12 M/UL (4.20-5.40) L Hemoglobin 9.3 G/DL (12.0-16.0) L Hematocrit 29.2 % (37.0-47.0) L Mean Corpuscular Volume 93 FL (80-99) Mean Corpuscular Hemoglobin 29.9 PG (27.0-31.0) Mean Corpuscular Hemoglobin Concent 32.0 G/DL (32.0-36.0) Red Cell Distribution Width 12.4 % (11.6-14.8) Platelet Count 250 K/UL (150-450) Mean Platelet Volume 5.8 FL (6.5-10.1) L Neutrophils (%) (Auto) 52.9 % (45.0-75.0) Lymphocytes (%) (Auto) 31.8 % (20.0-45.0) Monocytes (%) (Auto) 9.0 % (1.0-10.0) Eosinophils (%) (Auto) 5.0 % (0.0-3.0) H Basophils (%) (Auto) 1.3 % (0.0-2.0) Prothrombin Time 10.1 SEC (9.30-11.50) Prothromb Time International Ratio 1.0 (0.9-1.1) Activated Partial Thromboplast Time 25 SEC (23-33) Sodium Level 142 mEQ/L (135-145) Potassium Level 4.8 mEQ/L (3.4-4.9) Chloride Level 105 mEQ/L (98-107) Carbon Dioxide Level 19 mEQ/L (20-30) L Anion Gap 18 (5-15) H Blood Urea Nitrogen 37 mg/dL (7-23) H Creatinine 3.0 mg/dL (0.5-0.9) H Estimat Glomerular Filtration Rate mL/min (>60) Glucose Level 72 mg/dL (74-106) L Hemoglobin A1c 5.3 % (< 6.0) Calcium Level 9.0 mg/dL (8.6-10.2) Iron Level 48 ug/dL (37-145) Total Iron Binding Capacity 227 ug/dL (250-400) L Percent Iron Saturation 21 % (15-50) Unsaturated Iron Binding 179 ug/dL (112-346) Total Bilirubin 0.2 mg/dL (0.0-1.2) Direct Bilirubin 0.1 mg/dL (0.1-0.3) Aspartate Amino Transf (AST/SGOT) 15 U/L (5-40) Alanine Aminotransferase (ALT/SGPT) 9 U/L (3-33) Alkaline Phosphatase 73 U/L (35-104) Troponin I < 0.30 ng/mL (<=0.30) Total Protein 6.5 g/dL (6.6-8.7) L Albumin 4.0 g/dL (3.5-5.2) Globulin 3.1 g/dL Albumin/Globulin Ratio 1.2 (1.0-2.7) Amylase Level 48 U/L (10-110) Lipase 12 U/L (< 60) Thyroid Stimulating Hormone (TSH) 3.110 uIU/mL (0.300-4.500) Urine Color Pale yellow Urine Appearance Clear Urine pH 6.5 (4.5-8.0) Urine Specific Felt 1.010 (1.005-1.035) Urine Protein 3+ (NEGATIVE) H Urine Glucose (UA) Negative (NEGATIVE) Urine Ketones Negative (NEGATIVE) Urine Occult Blood 2+ (NEGATIVE) H Urine Nitrite Negative (NEGATIVE) Urine Bilirubin Negative (NEGATIVE) Urine Urobilinogen Normal MG/DL (0.0-1.0) Urine Leukocyte Esterase 3+ (NEGATIVE) H Urine RBC 2-4 /HPF (0 - 2) H Urine WBC 10-15 /HPF (0 - 2) H Urine Squamous Epithelial Cells Few /LPF (NONE/OCC) Urine Amorphous Sediment Few /LPF (NONE) H Urine Bacteria Moderate /HPF (NONE) H SU SHAFFER Jul 05, 2016 18:05
--- NOTE | 2016-07-05 18:28 | Cardiology Report ---
APPROVED REPORT EXAM: Two-dimensional and M-mode echocardiogram with Doppler and color Doppler. INDICATION Left ventricular function M-Mode DIMENSIONS IVSd1.4 (0.7-1.1cm)Left Atrium (MM)4.0 (1.6-4.0cm) LVDd4.7 (3.5-5.6cm)Aortic Root2.3 (2.0-3.7cm) PWd1.5 (0.7-1.1cm)Aortic Cusp Exc.1.6 (1.5-2.0cm) LVDs2.9 (2.5-4.0cm) PWs1.7 cm Normal left ventricular chamber size, systolic function and wall motion. Left ventricular ejection fraction estimated to be 55-60 %. Moderate left ventricular hypertrophy. Small posterior pericardial effusion. Mild right atrial enlargement by 2D. Moderate left atrial enlargement by 2D. Focal aortic valve sclerosis with adequate cusp excursion Mildly thickened mitral valve leaflets with normal excursion. Mild mitral annulus and aortic root calcification. Pulmonic valve not well visualized. Normal tricuspid valve structure. IVC is normal in size with physiologic collapse. A color flow and spectral Doppler study was performed and revealed: No aortic regurgitation. Moderate mitral regurgitation. Left ventricular diastolic dysfunction not obtainable due to arrhythmia. Moderate tricuspid regurgitation. Tricuspid systolic velocities suggests peak right ventricular systolic pressure of 29 mmHg Pulmonic regurgitation present.
[2016-07-05 20:05] VITALS: BP_SYST 123; BP_SYST 137; BP_DIAS 61; BP_DIAS 72
[2016-07-05] MEDS: Miralax 17gm pkt ORAL SCH (21:00)
[2016-07-05] MEDS: Levemir Flexpen SUBQ SCH (21:00)
[2016-07-05] MEDS: Atorvastatin 20mg tab ORAL SCH (21:47)
[2016-07-05] MEDS: Famotidine 20 MG/ 2ML VIAL IVP SCH (21:47)
--- NOTE | 2016-07-05 23:47 | Consultation ---
DATE OF CONSULTATION: 07/05/2016 CARDIOLOGY CONSULTATION CONSULTING PHYSICIAN: Franklin Ceron M.D. REFERRING PHYSICIAN: Joe Angeles M.D. REASON FOR CONSULTATION: Chest pain. HISTORY OF PRESENT ILLNESS: The patient is an 85-year-old lady with history of hypertension, diabetes, and hyperlipidemia, as well as renal failure, who came to the emergency room complaining of chest pain. The patient's first set of cardiac enzymes are negative. An EKG showed sinus rhythm with elevated PVCs. No acute ST-T wave abnormality. The patient underwent an echocardiogram that showed ejection fraction of 55% to 60% with moderate left ventricular hypertrophy and left atrial enlargement, moderate mitral regurgitation, and tricuspid regurgitation. Cardiology consultation was obtained for further evaluation and management. PAST MEDICAL HISTORY: 1. Hypertension. 2. Diabetes. 3. Hyperlipidemia. 4. Chronic kidney disease. 5. Anemia. PAST SURGICAL HISTORY: Total abdominal hysterectomy. MEDICATIONS: Include Procardia XL, Plavix, Mevacor, hydrochlorothiazide, insulin, Diovan, Antivert, and Ultram. ALLERGIES: She is allergic to penicillin. SOCIAL HISTORY: She is single. Does not smoke or drink alcohol. REVIEW OF SYSTEMS: Review of systems was thoroughly performed and was negative other than what was mentioned in the history of present illness. PHYSICAL EXAMINATION: VITAL SIGNS: Blood pressure is 139/67, pulse 77, respirations 18, and temperature 96.1 degrees. HEENT: Head and neck showed no JVD or carotid bruits. LUNGS: Clear. CARDIOVASCULAR: Shows regular S1 and S2 with no gallop or murmur. ABDOMEN: Soft and obese. EXTREMITIES: There is 1+ pitting edema. LABORATORY DATA: Her labs show white count of 6, hemoglobin 9.2, hematocrit 29.7, and platelet count of 250,000. Sodium 142, potassium is 4.8, BUN of 37, and creatinine of 3. Glucose of 72. Troponin is negative. ASSESSMENT AND PLAN: 1. Chest pain. The patient was ruled out for myocardial infarction. Echocardiogram showed normal left ventricular systolic function. The patient also underwent a nuclear stress test today, the results of which is still pending. 2. Hyperlipidemia, on Lipitor. 3. Hypertension, on Procardia XL 90 mg daily and Avapro 150 mg daily and p.r.n. clonidine. 4. Renal failure. Creatinine of 3. Further evaluation by Dr. Brasher. 5. Diabetes. 6. Anemia. Thank you very much, Dr. Angeles, for allowing me to participate in the care of this patient. Please do not hesitate to contact me for any questions regarding my evaluation. Franklin Ceron M.D. DR: MARTIN JOB#: [id number] CC:
[2016-07-06] VITALS: BP 149/72
[2016-07-06 04:00] VITALS: BP 139/71
[2016-07-06] MEDS: NovoLOG Insulin Flexpen SUBQ SCH ×5 (06:30→21:30)
[2016-07-06 07:39] VITALS: BP 134/61
[2016-07-06] MEDS: Famotidine 20 MG/ 2ML VIAL IVP SCH ×2 (08:17→21:19)
[2016-07-06] MEDS: Aspirin Baby 81mg ORAL SCH (08:17)
[2016-07-06] MEDS: Docusate 100mg cap ORAL SCH ×3 (08:18→17:30)
[2016-07-06] MEDS: Irbesartan 150mg tablet ORAL SCH (08:18)
[2016-07-06] MEDS: Heparin 5000 units/ml inj SUBQ SCH ×4 (08:19→21:30)
[2016-07-06 08:33] LABS: EOSINOPHILS % (AUTO) 4.4 % (0.0-3.0); LYMPHOCYTES % (AUTO) 29.4 % (20.0-45.0); MEAN CORPUSCULAR HEMOGLOBIN 30.2 PG (27.0-31.0); MEAN CORPUSCULAR VOLUME 91 FL (80-99); MEAN PLATELET VOLUME 6.3 FL (6.5-10.1); MONOCYTES % (AUTO) 8.1 % (1.0-10.0); NEUTROPHILS % (AUTO) 56.1 % (45.0-75.0); PLATELET COUNT 256 K/UL (150-450); RED BLOOD COUNT 3.44 M/UL (4.20-5.40); WHITE BLOOD COUNT 6.2 K/UL (4.8-10.8)
[2016-07-06 08:42] LABS: TROPONIN I < 0.30 ng/mL (<=0.30)
[2016-07-06 08:45] LABS: CRP QUANT 0.5 mg/dL (< 0.5); MAGNESIUM 1.6 mg/dL (1.7-2.5); URIC ACID 6.8 mg/dL (3.0-7.5)
[2016-07-06 08:50] LABS: FERRITIN 173 ng/mL (13-150)
[2016-07-06 08:56] LABS: ALANINE AMINOTRANSFERASE 10 U/L (3-33); ALBUMIN/GLOBULIN RATIO 1.3 (1.0-2.7); ANION GAP 19 (5-15); ASPARTATE AMINO TRANSFERASE 15 U/L (5-40); CALCIUM 9.6 mg/dL (8.6-10.2); CARBON DIOXIDE 18 mEQ/L (20-30); CHLORIDE 105 mEQ/L (98-107); CHOLESTEROL 173 mg/dL (< 200); CHOLESTEROL/HDL RATIO 2.8 (3.3-4.4); CREATININE 2.7 mg/dL (0.5-0.9); HEMOLYSIS 3; LDL CHOLESTEROL (CALC.) 78 mg/dL (60-99); POTASSIUM 4.8 mEQ/L (3.4-4.9); SODIUM 142 mEQ/L (135-145); TOTAL PROTEIN 7.4 g/dL (6.6-8.7)
[2016-07-06 12:42] VITALS: BP 141/72
[2016-07-06] MEDS: Lactulose 20gm/30ml UDC ORAL SCH ×2 (14:13→17:30)
--- NOTE | 2016-07-06 15:00 | Diagnostic Imaging Report ---
Indication: Abdominal pain, abnormal renal function tests Technique: Herrmann-scale and duplex images of the upper abdomen were obtained Comparison: None Findings: . Gallbladder is unremarkable, without stones, wall thickening, nor pericholecystic fluid. Sonographic Ram's sign is negative. Common bile duct measures 6 mm in diameter. No intrahepatic biliary ductal dilatation. Liver demonstrates normal echogenicity, no focal abnormality. Portal vein and hepatic veins are patent.. Pancreas is unremarkable. Spleen is unremarkable. Left kidney measures 9.1 cm in length. Right kidney measures 9.2 cm length. Both kidneys demonstrate equivocally slightly increased echogenicity and slight thinning of the renal cortex. There is no hydronephrosis. No focal abnormality. Non-aneurysmal abdominal aorta. Impression: Equivocal mild increased renal echogenicity and renal cortical thinning, if real could indicate early medical renal disease Negative for hydronephrosis. Negative for gallstones or dilated ducts
--- NOTE | 2016-07-06 15:03 | Cardiac Electrophysiology PN ---
Assessment/Plan Assessment/Plan 1. Chest pain. Was ruled out for myocardial infarction. Echocardiogram showed normal left ventricular systolic function. Nuclear stress test results from yesterday pending. 2. Hyperlipidemia, on Lipitor. 3. Hypertension, on Procardia XL 90 mg daily and Avapro 150 mg daily and p.r.n. clonidine. 4. Renal failure. Creatinine of 2.7. Follow up with Dr. Brasher. 5. Diabetes. 6. Anemia. DW RN Subjective Subjective Comfortable in NAD. No chest pain or SOB. Objective Last 24 Hour Vital Signs Date Time Temp Pulse Resp B/P Pulse Ox O2 Delivery O2 Flow Rate FiO2 07/06/16 12:42 97.0 74 20 141/72 97 Room Air 07/06/16 08:18 134/61 07/06/16 08:00 72 07/06/16 07:39 97.0 72 20 134/61 98 Room Air 07/06/16 04:00 70 07/06/16 04:00 97.9 71 16 139/71 99 Room Air 07/06/16 00:00 97.7 71 16 149/72 98 Room Air 07/06/16 00:00 67 07/05/16 20:05 97.0 73 14 137/61 95 Room Air 07/05/16 20:00 68 07/05/16 16:00 96.1 77 18 139/69 99 Room Air 07/05/16 16:00 69 Intake and Output 07/05/16 07/06/16 19:00 07:00 Intake Total 350 ml 530 ml Output Total 1600 ml Balance -1250 ml 530 ml Intake Oral 480 ml IV Total 350 ml 50 ml Output Urine Total 1600 ml # Voids 8 3 # Bowel Movements 1 Laboratory Tests Test 07/05/16 16:00 07/06/16 07:50 Urine Color Pale yellow Urine Appearance Clear Urine pH 6.5 (4.5-8.0) Urine Specific [place] 1.010 (1.005-1.035) Urine Protein 3+ (NEGATIVE) H Urine Glucose (UA) Negative (NEGATIVE) Urine Ketones Negative (NEGATIVE) Urine Occult Blood 2+ (NEGATIVE) H Urine Nitrite Negative (NEGATIVE) Urine Bilirubin Negative (NEGATIVE) Urine Urobilinogen Normal MG/DL (0.0-1.0) Urine Leukocyte Esterase 3+ (NEGATIVE) H Urine RBC 2-4 /HPF (0 - 2) H Urine WBC 10-15 /HPF (0 - 2) H Urine Squamous Epithelial Cells Few /LPF (NONE/OCC) Urine Amorphous Sediment Few /LPF (NONE) H Urine Bacteria Moderate /HPF (NONE) H White Blood Count 6.2 K/UL (4.8-10.8) Red Blood Count 3.44 M/UL (4.20-5.40) L Hemoglobin 10.4 G/DL (12.0-16.0) L Hematocrit 31.5 % (37.0-47.0) L Mean Corpuscular Volume 91 FL (80-99) Mean Corpuscular Hemoglobin 30.2 PG (27.0-31.0) Mean Corpuscular Hemoglobin Concent 33.0 G/DL (32.0-36.0) Red Cell Distribution Width 12.0 % (11.6-14.8) Platelet Count 256 K/UL (150-450) Mean Platelet Volume 6.3 FL (6.5-10.1) L Neutrophils (%) (Auto) 56.1 % (45.0-75.0) Lymphocytes (%) (Auto) 29.4 % (20.0-45.0) Monocytes (%) (Auto) 8.1 % (1.0-10.0) Eosinophils (%) (Auto) 4.4 % (0.0-3.0) H Basophils (%) (Auto) 2.0 % (0.0-2.0) Sodium Level 142 mEQ/L (135-145) Potassium Level 4.8 mEQ/L (3.4-4.9) Chloride Level 105 mEQ/L (98-107) Carbon Dioxide Level 18 mEQ/L (20-30) L Anion Gap 19 (5-15) H Blood Urea Nitrogen 33 mg/dL (7-23) H Creatinine 2.7 mg/dL (0.5-0.9) H Estimat Glomerular Filtration Rate mL/min (>60) Glucose Level 116 mg/dL (74-106) H Uric Acid 6.8 mg/dL (3.0-7.5) Calcium Level 9.6 mg/dL (8.6-10.2) Phosphorus Level 4.0 mg/dL (2.5-4.8) Magnesium Level 1.6 mg/dL (1.7-2.5) L Ferritin 173 ng/mL (13-150) H Total Bilirubin 0.3 mg/dL (0.0-1.2) Gamma Glutamyl Transpeptidase 18 U/L (5-36) Aspartate Amino Transf (AST/SGOT) 15 U/L (5-40) Alanine Aminotransferase (ALT/SGPT) 10 U/L (3-33) Alkaline Phosphatase 77 U/L (35-104) Total Creatine Kinase 74 U/L (26-140) Troponin I < 0.30 ng/mL (<=0.30) C-Reactive Protein, Quantitative 0.5 mg/dL (< 0.5) Pro-B-Type Natriuretic Peptide 1731 pg/mL (0-450) H Total Protein 7.4 g/dL (6.6-8.7) Albumin 4.3 g/dL (3.5-5.2) Globulin 3.1 g/dL Albumin/Globulin Ratio 1.3 (1.0-2.7) Triglycerides Level 169 mg/dL (< 150) H Cholesterol Level 173 mg/dL (< 200) LDL Cholesterol 78 mg/dL (60-99) HDL Cholesterol 61 mg/dL (> 60) H Cholesterol/HDL Ratio 2.8 (3.3-4.4) L Vitamin B12 Level 605 pg/mL (211-946) Folate Pending Microbiology Date/Time Source Procedure Growth Status 07/05/16 16:00 Urine,Clean Catch Urine Culture - Preliminary NO GROWTH Resulted Objective HEENT: Head and neck showed no JVD or carotid bruits. LUNGS: Clear. CARDIOVASCULAR: Shows regular S1 and S2 with no gallop or murmur. ABDOMEN: Soft and obese. EXTREMITIES: There is 1+ pitting edema. SU SHAFFER Jul 06, 2016 15:03
--- NOTE | 2016-07-06 15:52 | Diagnostic Imaging Report ---
Indications: Chest pain Technique: Single day single isotope protocol attempted. Initially, resting images obtained using IV administration 11.3 millicuries 99M technetium Myoview. Subsequently, patient underwent adenosine stress testing. See cardiology report for details. During adenosine infusion, patient experienced secondary type I AV block, and the procedure was terminated and no isotope was injected. Comparison: None Findings: Per cardiology report, stress test findings are inconclusive. Per cardiology report, resting EKG demonstrates sinus rhythm with first degree AV block. Resting images demonstrate a perfusion defect in the inferolateral wall extending into the apex. Ejection fraction was not calculated as the poststress images were not obtained. Impression: Inconclusive clinical response to pharmacologic stress, per cardiology report Inconclusive electrocardiographic response to pharmacologic stress, per cardiology report Inferolateral wall resting perfusion defect, consistent with infarct. Unable to assess for ischemia given the absence of stress imaging
[2016-07-06 16:00] VITALS: BP 132/84
--- NOTE | 2016-07-06 16:19 | GI Progress Note ---
Assessment/Plan Problems: (1) Constipated ICD Codes: K59.00 - Constipation, unspecified SNOMED: 00426320 (2) Anemia ICD Codes: D64.9 - Anemia, unspecified SNOMED: 010151287 Qualifiers: (3) Diabetes mellitus ICD Codes: E11.9 - Type 2 diabetes mellitus without complications SNOMED: 57031052 Qualifiers: (4) Intractable abdominal pain ICD Codes: R10.9 - Unspecified abdominal pain SNOMED: 66874645, [id number] Status: stable, unchanged Status Narrative Discussed with Dr. Narvaez. Assessment/Plan ASSESSMENT AND PLAN: 1. Anemia. 2. Renal insufficiency. 3. Hypertension. 4. Diabetes. 5. Chronic constipation. abd U/S >> unremarkable BM x 1 PLAN: defer GI procedures at this time anemia due to hx of renal insufficiency will consider GI procedures if indicated ADA diet bowel regime >> added Lactulose ATC OB stool uncollected H2 PT eval fu labs The patient was seen and examined at bedside and all new and available data was reviewed in the patients chart. I agree with the above findings, impression and plan. (Patient seen earlier today. Signature stamp does not reflect patient encounter time.). -Hemal Narvaez MD Subjective Gastrointestinal/Abdominal: Reports: constipated Subjective denies any abdominal pain Objective Last 24 Hour Vital Signs Date Time Temp Pulse Resp B/P Pulse Ox O2 Delivery O2 Flow Rate FiO2 07/06/16 12:42 97.0 74 20 141/72 97 Room Air 07/06/16 08:18 134/61 07/06/16 08:00 72 07/06/16 07:39 97.0 72 20 134/61 98 Room Air 07/06/16 04:00 70 07/06/16 04:00 97.9 71 16 139/71 99 Room Air 07/06/16 00:00 97.7 71 16 149/72 98 Room Air 07/06/16 00:00 67 07/05/16 20:05 97.0 73 14 137/61 95 Room Air 07/05/16 20:00 68 Intake and Output 07/05/16 07/06/16 19:00 07:00 Intake Total 350 ml 530 ml Output Total 1600 ml Balance -1250 ml 530 ml Intake Oral 480 ml IV Total 350 ml 50 ml Output Urine Total 1600 ml # Voids 8 3 # Bowel Movements 1 Laboratory Tests Test 07/06/16 07:50 White Blood Count 6.2 K/UL (4.8-10.8) Red Blood Count 3.44 M/UL (4.20-5.40) L Hemoglobin 10.4 G/DL (12.0-16.0) L Hematocrit 31.5 % (37.0-47.0) L Mean Corpuscular Volume 91 FL (80-99) Mean Corpuscular Hemoglobin 30.2 PG (27.0-31.0) Mean Corpuscular Hemoglobin Concent 33.0 G/DL (32.0-36.0) Red Cell Distribution Width 12.0 % (11.6-14.8) Platelet Count 256 K/UL (150-450) Mean Platelet Volume 6.3 FL (6.5-10.1) L Neutrophils (%) (Auto) 56.1 % (45.0-75.0) Lymphocytes (%) (Auto) 29.4 % (20.0-45.0) Monocytes (%) (Auto) 8.1 % (1.0-10.0) Eosinophils (%) (Auto) 4.4 % (0.0-3.0) H Basophils (%) (Auto) 2.0 % (0.0-2.0) Sodium Level 142 mEQ/L (135-145) Potassium Level 4.8 mEQ/L (3.4-4.9) Chloride Level 105 mEQ/L (98-107) Carbon Dioxide Level 18 mEQ/L (20-30) L Anion Gap 19 (5-15) H Blood Urea Nitrogen 33 mg/dL (7-23) H Creatinine 2.7 mg/dL (0.5-0.9) H Estimat Glomerular Filtration Rate mL/min (>60) Glucose Level 116 mg/dL (74-106) H Uric Acid 6.8 mg/dL (3.0-7.5) Calcium Level 9.6 mg/dL (8.6-10.2) Phosphorus Level 4.0 mg/dL (2.5-4.8) Magnesium Level 1.6 mg/dL (1.7-2.5) L Ferritin 173 ng/mL (13-150) H Total Bilirubin 0.3 mg/dL (0.0-1.2) Gamma Glutamyl Transpeptidase 18 U/L (5-36) Aspartate Amino Transf (AST/SGOT) 15 U/L (5-40) Alanine Aminotransferase (ALT/SGPT) 10 U/L (3-33) Alkaline Phosphatase 77 U/L (35-104) Total Creatine Kinase 74 U/L (26-140) Troponin I < 0.30 ng/mL (<=0.30) C-Reactive Protein, Quantitative 0.5 mg/dL (< 0.5) Pro-B-Type Natriuretic Peptide 1731 pg/mL (0-450) H Total Protein 7.4 g/dL (6.6-8.7) Albumin 4.3 g/dL (3.5-5.2) Globulin 3.1 g/dL Albumin/Globulin Ratio 1.3 (1.0-2.7) Triglycerides Level 169 mg/dL (< 150) H Cholesterol Level 173 mg/dL (< 200) LDL Cholesterol 78 mg/dL (60-99) HDL Cholesterol 61 mg/dL (> 60) H Cholesterol/HDL Ratio 2.8 (3.3-4.4) L Vitamin B12 Level 605 pg/mL (211-946) Folate Pending Height (Feet): 5 Height (Inches): 5.00 Weight (Pounds): 185 General Appearance: no apparent distress, alert, obese Cardiovascular: normal rate Respiratory/Chest: normal breath sounds, no accessory muscle use Abdominal Exam: normal bowel sounds, non tender, soft Objective BM x 1 Priscila Freeman N.Ayaan Jul 06, 2016 16:19 HEMAL NARVAEZ Jul 12, 2016 08:10
--- NOTE | 2016-07-06 17:12 | Pulmonology Progress Note ---
Assessment/Plan Problems: (1) Chest pain (2) Renal failure (3) Anemia (4) Diabetes mellitus (5) Hypercholesteremia (6) HTN (hypertension) Assessment/Plan stress study results still pending acute NC ruled out watch bun/creatinine f/u by renal watch bp Subjective Interval Events: no new compalins Allergies: Coded Allergies: PENICILLIN G (Verified Allergy, Intermediate, 07/04/16) Verified on 07/03/2016 from [facility] ADENOSINE (Verified Adverse Reaction, Unknown, heart block, 07/05/16) developed 2nd degree heart block during Adenosine stress test. Test stopped Objective Last 24 Hour Vital Signs Date Time Temp Pulse Resp B/P Pulse Ox O2 Delivery O2 Flow Rate FiO2 07/06/16 16:00 96.0 68 18 132/84 100 Room Air 07/06/16 16:00 69 07/06/16 12:42 97.0 74 20 141/72 97 Room Air 07/06/16 08:18 134/61 07/06/16 08:00 72 07/06/16 07:39 97.0 72 20 134/61 98 Room Air 07/06/16 04:00 70 07/06/16 04:00 97.9 71 16 139/71 99 Room Air 07/06/16 00:00 97.7 71 16 149/72 98 Room Air 07/06/16 00:00 67 07/05/16 20:05 97.0 73 14 137/61 95 Room Air 07/05/16 20:00 68 Intake and Output 07/05/16 07/06/16 19:00 07:00 Intake Total 350 ml 530 ml Output Total 1600 ml Balance -1250 ml 530 ml Intake Oral 480 ml IV Total 350 ml 50 ml Output Urine Total 1600 ml # Voids 8 3 # Bowel Movements 1 Microbiology Date/Time Source Procedure Growth Status 07/05/16 16:00 Urine,Clean Catch Urine Culture - Preliminary NO GROWTH Resulted Laboratory Tests 07/06/16 07:50: White Blood Count 6.2, Red Blood Count 3.44L, Hemoglobin 10.4L, Hematocrit 31.5L , Mean Corpuscular Volume 91, Mean Corpuscular Hemoglobin 30.2, Mean Corpuscular Hemoglobin Concent 33.0, Red Cell Distribution Width 12.0, Platelet Count 256, Mean Platelet Volume 6.3L, Neutrophils (%) (Auto) 56.1, Lymphocytes ( %) (Auto) 29.4, Monocytes (%) (Auto) 8.1, Eosinophils (%) (Auto) 4.4H, Basophils (%) (Auto) 2.0, Sodium Level 142, Potassium Level 4.8, Chloride Level 105, Carbon Dioxide Level 18L, Anion Gap 19H, Blood Urea Nitrogen 33H, Creatinine 2.7H, Estimat Glomerular Filtration Rate , Glucose Level 116H, Uric Acid 6.8, Calcium Level 9.6, Phosphorus Level 4.0, Magnesium Level 1.6L, Ferritin 173H, Total Bilirubin 0.3, Gamma Glutamyl Transpeptidase 18, Aspartate Amino Transf (AST/SGOT) 15, Alanine Aminotransferase (ALT/SGPT) 10, Alkaline Phosphatase 77, Total Creatine Kinase 74, Troponin I < 0.30, C-Reactive Protein , Quantitative 0.5, Pro-B-Type Natriuretic Peptide 1731H, Total Protein 7.4, Albumin 4.3, Globulin 3.1, Albumin/Globulin Ratio 1.3, Triglycerides Level 169H , Cholesterol Level 173, LDL Cholesterol 78, HDL Cholesterol 61H, Cholesterol/ HDL Ratio 2.8L, Vitamin B12 Level 605, Folate [Pending] Current Medications Medications (Trade) Dose Ordered Sig/Bryce Route PRN Reason Start Time Stop Time Status Last Admin Dose Admin Acetaminophen (Tylenol) 650 mg Q4H PRN ORAL fever 07/05/16 06:15 08/04/16 06:14 Aspirin (ASA) 81 mg DAILY ORAL 07/05/16 09:00 08/04/16 08:59 07/06/16 08:17 Atorvastatin Calcium (Lipitor) 20 mg BEDTIME ORAL 07/05/16 21:00 08/04/16 20:59 07/05/16 21:47 Clonidine HCl (Catapres) 0.1 mg Q4H PRN ORAL hypertension 07/05/16 18:15 08/04/16 18:14 Clopidogrel Bisulfate (Plavix) 75 mg DAILY ORAL 07/05/16 09:00 08/04/16 08:59 07/06/16 08:18 Dextrose (Dextrose 50%) STAT PRN IV Hypoglycemia 07/05/16 06:15 08/04/16 06:14 Docusate Sodium (Colace) 100 mg THREE TIMES A DAY ORAL 07/05/16 13:00 08/04/16 12:59 07/06/16 12:44 Famotidine (Pepcid I.v.) 20 mg Q12HR IVP 07/05/16 21:00 08/04/16 20:59 07/06/16 08:17 Heparin Sodium (Porcine) (Heparin 5000 units/ml) 5,000 units EVERY 12 HOURS SUBQ 07/05/16 09:00 08/04/16 08:59 07/06/16 08:19 Insulin Aspart (NovoLOG) BEFORE MEALS AND HS SUBQ 07/05/16 06:30 08/04/16 06:29 Insulin Detemir (Levemir) 10 units BEDTIME SUBQ 07/05/16 21:00 08/04/16 20:59 Irbesartan (Avapro) 150 mg DAILY ORAL 07/05/16 09:00 08/04/16 08:59 07/06/16 08:18 Lactulose (Cephulac) 20 gm THREE TIMES A DAY ORAL 07/06/16 14:00 08/05/16 13:59 07/06/16 14:13 Morphine Sulfate (Morphine Sulfate) 2 mg Q4H PRN IVP severe Pain (Pain Scale 7-10) 07/05/16 05:00 07/12/16 04:59 Nifedipine (Procardia XL) 90 mg DAILY ORAL 07/05/16 11:00 08/04/16 10:59 07/05/16 10:27 Nitroglycerin (Ntg) 0.4 mg Q5M X 3 DOSES PRN SL Prn Chest Pain 07/05/16 03:30 08/04/16 03:29 Ondansetron HCl (Zofran) 4 mg Q6H PRN IVP Nausea & Vomiting 07/05/16 06:15 08/04/16 06:14 Polyethylene Glycol (Miralax) 17 gm BEDTIME ORAL 07/05/16 21:00 08/04/16 20:59 Polyethylene Glycol (Miralax) 17 gm HSPRN PRN ORAL Constipation 07/05/16 06:15 08/04/16 06:14 Sodium Chloride (Sodium Chloride 1000ml bag) 1,000 ml @ 50 mls/hr Q20H IV 07/05/16 03:30 08/04/16 03:29 07/06/16 00:00 Temazepam (Restoril) 15 mg HSPRN PRN ORAL Insomnia 07/05/16 06:15 07/12/16 06:14 DANNY REYES Jul 06, 2016 17:12
--- NOTE | 2016-07-06 17:28 | General Progress Note ---
Assessment/Plan Status: stable Status Narrative Cr lower Assessment/Plan status; Renal failure likely chronic due to long history of DM and HTN UA: 3+ Protein- Evidence of UTI Admitted with chest pain, high risk for CAD. other conditions: 1. Chronic constipation. 2. Hypertension. 3. Diabetes. 4. Chronic renal insufficiency per patient. 5. Anemia per patient. Past surgeries: 1. Tubal ligation. 2. Hysterectomy. Plan: DC HCTZ- Slow Hydrate- Monitor renal parameters- check urine analysis and urine studies- Avoid nephrotoxics- per orders JOHN: Equivocal mild increased renal echogenicity and renal cortical thinning, if real could indicate early medical renal disease Negative for hydronephrosis. Subjective ROS Limited/Unobtainable: No Constitutional: Reports: malaise Allergies: Coded Allergies: PENICILLIN G (Verified Allergy, Intermediate, 07/04/16) Verified on 07/03/2016 from [facility] ADENOSINE (Verified Adverse Reaction, Unknown, heart block, 07/05/16) developed 2nd degree heart block during Adenosine stress test. Test stopped Objective Last 24 Hour Vital Signs Date Time Temp Pulse Resp B/P Pulse Ox O2 Delivery O2 Flow Rate FiO2 07/06/16 16:00 96.0 68 18 132/84 100 Room Air 07/06/16 16:00 69 07/06/16 12:42 97.0 74 20 141/72 97 Room Air 07/06/16 08:18 134/61 07/06/16 08:00 72 07/06/16 07:39 97.0 72 20 134/61 98 Room Air 07/06/16 04:00 70 07/06/16 04:00 97.9 71 16 139/71 99 Room Air 07/06/16 00:00 97.7 71 16 149/72 98 Room Air 07/06/16 00:00 67 07/05/16 20:05 97.0 73 14 137/61 95 Room Air 07/05/16 20:00 68 Intake and Output 07/05/16 07/06/16 19:00 07:00 Intake Total 350 ml 530 ml Output Total 1600 ml Balance -1250 ml 530 ml Intake Oral 480 ml IV Total 350 ml 50 ml Output Urine Total 1600 ml # Voids 8 3 # Bowel Movements 1 Laboratory Tests 07/06/16 07:50: White Blood Count 6.2, Red Blood Count 3.44L, Hemoglobin 10.4L, Hematocrit 31.5L , Mean Corpuscular Volume 91, Mean Corpuscular Hemoglobin 30.2, Mean Corpuscular Hemoglobin Concent 33.0, Red Cell Distribution Width 12.0, Platelet Count 256, Mean Platelet Volume 6.3L, Neutrophils (%) (Auto) 56.1, Lymphocytes ( %) (Auto) 29.4, Monocytes (%) (Auto) 8.1, Eosinophils (%) (Auto) 4.4H, Basophils (%) (Auto) 2.0, Sodium Level 142, Potassium Level 4.8, Chloride Level 105, Carbon Dioxide Level 18L, Anion Gap 19H, Blood Urea Nitrogen 33H, Creatinine 2.7H, Estimat Glomerular Filtration Rate , Glucose Level 116H, Uric Acid 6.8, Calcium Level 9.6, Phosphorus Level 4.0, Magnesium Level 1.6L, Ferritin 173H, Total Bilirubin 0.3, Gamma Glutamyl Transpeptidase 18, Aspartate Amino Transf (AST/SGOT) 15, Alanine Aminotransferase (ALT/SGPT) 10, Alkaline Phosphatase 77, Total Creatine Kinase 74, Troponin I < 0.30, C-Reactive Protein , Quantitative 0.5, Pro-B-Type Natriuretic Peptide 1731H, Total Protein 7.4, Albumin 4.3, Globulin 3.1, Albumin/Globulin Ratio 1.3, Triglycerides Level 169H , Cholesterol Level 173, LDL Cholesterol 78, HDL Cholesterol 61H, Cholesterol/ HDL Ratio 2.8L, Vitamin B12 Level 605, Folate [Pending] Height (Feet): 5 Height (Inches): 5.00 Weight (Pounds): 185 General Appearance: no apparent distress Objective PE not changed HENRY BORDEN Jul 06, 2016 17:28
--- NOTE | 2016-07-06 17:39 | Internal Med Progress Note ---
Subjective Date of Service: Jul 06, 2016 Physician Name Leandra Costello Attending Physician Joe Angeles MD Current Medications Medications (Trade) Dose Ordered Sig/Bryce Route PRN Reason Start Time Stop Time Status Last Admin Dose Admin Acetaminophen (Tylenol) 650 mg Q4H PRN ORAL fever 07/05/16 06:15 08/04/16 06:14 Aspirin (ASA) 81 mg DAILY ORAL 07/05/16 09:00 08/04/16 08:59 07/06/16 08:17 Atorvastatin Calcium (Lipitor) 20 mg BEDTIME ORAL 07/05/16 21:00 08/04/16 20:59 07/05/16 21:47 Clonidine HCl (Catapres) 0.1 mg Q4H PRN ORAL hypertension 07/05/16 18:15 08/04/16 18:14 Clopidogrel Bisulfate (Plavix) 75 mg DAILY ORAL 07/05/16 09:00 08/04/16 08:59 07/06/16 08:18 Dextrose (Dextrose 50%) STAT PRN IV Hypoglycemia 07/05/16 06:15 08/04/16 06:14 Docusate Sodium (Colace) 100 mg THREE TIMES A DAY ORAL 07/05/16 13:00 08/04/16 12:59 07/06/16 12:44 Famotidine (Pepcid I.v.) 20 mg Q12HR IVP 07/05/16 21:00 08/04/16 20:59 07/06/16 08:17 Heparin Sodium (Porcine) (Heparin 5000 units/ml) 5,000 units EVERY 12 HOURS SUBQ 07/05/16 09:00 08/04/16 08:59 07/06/16 08:19 Insulin Aspart (NovoLOG) BEFORE MEALS AND HS SUBQ 07/05/16 06:30 08/04/16 06:29 Insulin Detemir (Levemir) 10 units BEDTIME SUBQ 07/05/16 21:00 08/04/16 20:59 Irbesartan (Avapro) 150 mg DAILY ORAL 07/05/16 09:00 08/04/16 08:59 07/06/16 08:18 Lactulose (Cephulac) 20 gm THREE TIMES A DAY ORAL 07/06/16 14:00 08/05/16 13:59 07/06/16 14:13 Morphine Sulfate (Morphine Sulfate) 2 mg Q4H PRN IVP severe Pain (Pain Scale 7-10) 07/05/16 05:00 07/12/16 04:59 Nifedipine (Procardia XL) 90 mg DAILY ORAL 07/05/16 11:00 08/04/16 10:59 07/05/16 10:27 Nitroglycerin (Ntg) 0.4 mg Q5M X 3 DOSES PRN SL Prn Chest Pain 07/05/16 03:30 08/04/16 03:29 Ondansetron HCl (Zofran) 4 mg Q6H PRN IVP Nausea & Vomiting 07/05/16 06:15 08/04/16 06:14 Polyethylene Glycol (Miralax) 17 gm BEDTIME ORAL 07/05/16 21:00 08/04/16 20:59 Polyethylene Glycol (Miralax) 17 gm HSPRN PRN ORAL Constipation 07/05/16 06:15 08/04/16 06:14 Sodium Chloride (Sodium Chloride 1000ml bag) 1,000 ml @ 50 mls/hr Q20H IV 07/05/16 03:30 08/04/16 03:29 07/06/16 00:00 Temazepam (Restoril) 15 mg HSPRN PRN ORAL Insomnia 07/05/16 06:15 07/12/16 06:14 Allergies: Coded Allergies: PENICILLIN G (Verified Allergy, Intermediate, 07/04/16) Verified on 07/03/2016 from [facility] ADENOSINE (Verified Adverse Reaction, Unknown, heart block, 07/05/16) developed 2nd degree heart block during Adenosine stress test. Test stopped ROS Limited/Unobtainable: No Constitutional: Reports: no symptoms HEENT: Reports: no symptoms Cardiovascular: Reports: chest pain Respiratory: Reports: no symptoms Gastrointestinal/Abdominal: Reports: no symptoms Genitourinary: Reports: no symptoms Neurologic/Psychiatric: Reports: no symptoms Subjective 85 YO F admitted with chest pain. Cover for Int Daren-Dr Angeles. Objective Last Vital Signs Date Time Temp Pulse Resp B/P Pulse Ox O2 Delivery O2 Flow Rate FiO2 07/06/16 16:00 96.0 68 18 132/84 100 Room Air Laboratory Tests Test 07/06/16 07:50 White Blood Count 6.2 K/UL (4.8-10.8) Red Blood Count 3.44 M/UL (4.20-5.40) L Hemoglobin 10.4 G/DL (12.0-16.0) L Hematocrit 31.5 % (37.0-47.0) L Mean Corpuscular Volume 91 FL (80-99) Mean Corpuscular Hemoglobin 30.2 PG (27.0-31.0) Mean Corpuscular Hemoglobin Concent 33.0 G/DL (32.0-36.0) Red Cell Distribution Width 12.0 % (11.6-14.8) Platelet Count 256 K/UL (150-450) Mean Platelet Volume 6.3 FL (6.5-10.1) L Neutrophils (%) (Auto) 56.1 % (45.0-75.0) Lymphocytes (%) (Auto) 29.4 % (20.0-45.0) Monocytes (%) (Auto) 8.1 % (1.0-10.0) Eosinophils (%) (Auto) 4.4 % (0.0-3.0) H Basophils (%) (Auto) 2.0 % (0.0-2.0) Sodium Level 142 mEQ/L (135-145) Potassium Level 4.8 mEQ/L (3.4-4.9) Chloride Level 105 mEQ/L (98-107) Carbon Dioxide Level 18 mEQ/L (20-30) L Anion Gap 19 (5-15) H Blood Urea Nitrogen 33 mg/dL (7-23) H Creatinine 2.7 mg/dL (0.5-0.9) H Estimat Glomerular Filtration Rate mL/min (>60) Glucose Level 116 mg/dL (74-106) H Uric Acid 6.8 mg/dL (3.0-7.5) Calcium Level 9.6 mg/dL (8.6-10.2) Phosphorus Level 4.0 mg/dL (2.5-4.8) Magnesium Level 1.6 mg/dL (1.7-2.5) L Ferritin 173 ng/mL (13-150) H Total Bilirubin 0.3 mg/dL (0.0-1.2) Gamma Glutamyl Transpeptidase 18 U/L (5-36) Aspartate Amino Transf (AST/SGOT) 15 U/L (5-40) Alanine Aminotransferase (ALT/SGPT) 10 U/L (3-33) Alkaline Phosphatase 77 U/L (35-104) Total Creatine Kinase 74 U/L (26-140) Troponin I < 0.30 ng/mL (<=0.30) C-Reactive Protein, Quantitative 0.5 mg/dL (< 0.5) Pro-B-Type Natriuretic Peptide 1731 pg/mL (0-450) H Total Protein 7.4 g/dL (6.6-8.7) Albumin 4.3 g/dL (3.5-5.2) Globulin 3.1 g/dL Albumin/Globulin Ratio 1.3 (1.0-2.7) Triglycerides Level 169 mg/dL (< 150) H Cholesterol Level 173 mg/dL (< 200) LDL Cholesterol 78 mg/dL (60-99) HDL Cholesterol 61 mg/dL (> 60) H Cholesterol/HDL Ratio 2.8 (3.3-4.4) L Vitamin B12 Level 605 pg/mL (211-946) Folate Pending Microbiology Date/Time Source Procedure Growth Status 07/05/16 16:00 Urine,Clean Catch Urine Culture - Preliminary NO GROWTH Resulted Intake and Output 07/05/16 07/06/16 19:00 07:00 Intake Total 350 ml 530 ml Output Total 1600 ml Balance -1250 ml 530 ml Intake Oral 480 ml IV Total 350 ml 50 ml Output Urine Total 1600 ml # Voids 8 3 # Bowel Movements 1 Objective General Appearance: WD/WN, no apparent distress, alert EENT: PERRL/EOMI, normal ENT inspection Neck: non-tender, normal alignment, supple, normal inspection Cardiovascular: normal peripheral pulses, normal rate, regular rhythm, no gallop/murmur, no JVD Respiratory/Chest: chest wall non-tender, lungs clear, normal breath sounds, no respiratory distress, no accessory muscle use Abdomen: normal bowel sounds, non tender, soft, no organomegaly, no mass Extremities: normal range of motion, non-tender Neurologic: benzol still operator II-XII grossly normal Skin: normal pigmentation, warm/dry Assessment/Plan Problem List: (1) Chest pain Assessment & Plan: See cardiology consult. Nuclear stress test inconclusive (2) HTN (hypertension) Assessment & Plan: Continue procardia (3) Hypercholesteremia (4) Renal failure Assessment & Plan: Await nephrology consult (5) Diabetes mellitus Assessment & Plan: cont levemir and novolog sliding scale. (6) Anemia Status: progressing LEANDRA COSTELLO Jul 06, 2016 17:39
[2016-07-06 20:00] VITALS: BP 132/77
[2016-07-06] MEDS: Atorvastatin 20mg tab ORAL SCH (21:19)
[2016-07-06] MEDS: Miralax 17gm pkt ORAL SCH (21:20)
[2016-07-06] MEDS: Levemir Flexpen SUBQ SCH ×2 (21:22→21:30)
[2016-07-07 00:10] VITALS: BP 134/65
[2016-07-07 04:20] VITALS: BP 155/77
[2016-07-07] MEDS: NovoLOG Insulin Flexpen SUBQ SCH ×4 (06:30→21:00)
[2016-07-07 07:42] LABS: BASOPHILS % (AUTO) 0.9 % (0.0-2.0); LYMPHOCYTES % (AUTO) 20.1 % (20.0-45.0); MEAN CORPUSCULAR HEMOGLOBIN 29.8 PG (27.0-31.0); MEAN CORPUSCULAR HGB CONC 32.7 G/DL (32.0-36.0); MEAN CORPUSCULAR VOLUME 91 FL (80-99); MONOCYTES % (AUTO) 8.2 % (1.0-10.0); NEUTROPHILS % (AUTO) 67.8 % (45.0-75.0); PLATELET COUNT 245 K/UL (150-450); RED BLOOD COUNT 3.22 M/UL (4.20-5.40); RED CELL DISTRIBUTION WIDTH 11.8 % (11.6-14.8); WHITE BLOOD COUNT 6.9 K/UL (4.8-10.8)
[2016-07-07 07:59] LABS: ANION GAP 17 (5-15); CALCIUM 9.5 mg/dL (8.6-10.2); CARBON DIOXIDE 18 mEQ/L (20-30); CHLORIDE 107 mEQ/L (98-107); CREATININE 2.8 mg/dL (0.5-0.9); HEMOLYSIS 1; POTASSIUM 4.9 mEQ/L (3.4-4.9); SODIUM 142 mEQ/L (135-145)
[2016-07-07 08:25] VITALS: BP 158/87
[2016-07-07] MEDS: Famotidine 20 MG/ 2ML VIAL IVP SCH (09:08)
[2016-07-07] MEDS: Irbesartan 150mg tablet ORAL SCH (09:09)
[2016-07-07] MEDS: Aspirin Baby 81mg ORAL SCH (09:09)
[2016-07-07] MEDS: Lactulose 20gm/30ml UDC ORAL SCH ×3 (09:11→18:16)
[2016-07-07] MEDS: Docusate 100mg cap ORAL SCH ×3 (09:12→18:18)
[2016-07-07] MEDS: Heparin 5000 units/ml inj SUBQ SCH ×2 (09:13→21:48)
--- NOTE | 2016-07-07 11:41 | Internal Med Progress Note ---
Subjective Date of Service: Jul 07, 2016 Physician Name Leandra Costello Attending Physician Joe Angeles MD Current Medications Medications (Trade) Dose Ordered Sig/Bryce Route PRN Reason Start Time Stop Time Status Last Admin Dose Admin Acetaminophen (Tylenol) 650 mg Q4H PRN ORAL fever 07/05/16 06:15 08/04/16 06:14 Aspirin (ASA) 81 mg DAILY ORAL 07/05/16 09:00 08/04/16 08:59 07/07/16 09:09 Atorvastatin Calcium (Lipitor) 20 mg BEDTIME ORAL 07/05/16 21:00 08/04/16 20:59 07/06/16 21:19 Clonidine HCl (Catapres) 0.1 mg Q4H PRN ORAL hypertension 07/05/16 18:15 08/04/16 18:14 Clopidogrel Bisulfate (Plavix) 75 mg DAILY ORAL 07/05/16 09:00 08/04/16 08:59 07/07/16 09:08 Dextrose (Dextrose 50%) STAT PRN IV Hypoglycemia 07/05/16 06:15 08/04/16 06:14 Docusate Sodium (Colace) 100 mg THREE TIMES A DAY ORAL 07/05/16 13:00 08/04/16 12:59 07/07/16 09:12 Famotidine (Pepcid I.v.) 20 mg Q12HR IVP 07/05/16 21:00 08/04/16 20:59 07/07/16 09:08 Heparin Sodium (Porcine) (Heparin 5000 units/ml) 5,000 units EVERY 12 HOURS SUBQ 07/05/16 09:00 08/04/16 08:59 07/07/16 09:13 Insulin Aspart (NovoLOG) BEFORE MEALS AND HS SUBQ 07/05/16 06:30 08/04/16 06:29 Insulin Detemir (Levemir) 10 units BEDTIME SUBQ 07/05/16 21:00 08/04/16 20:59 Irbesartan (Avapro) 150 mg DAILY ORAL 07/05/16 09:00 08/04/16 08:59 07/07/16 09:09 Lactulose (Cephulac) 20 gm THREE TIMES A DAY ORAL 07/06/16 14:00 08/05/16 13:59 07/07/16 09:11 Morphine Sulfate (Morphine Sulfate) 2 mg Q4H PRN IVP severe Pain (Pain Scale 7-10) 07/05/16 05:00 07/12/16 04:59 Nifedipine (Procardia XL) 90 mg DAILY ORAL 07/05/16 11:00 08/04/16 10:59 07/07/16 09:08 Nitroglycerin (Ntg) 0.4 mg Q5M X 3 DOSES PRN SL Prn Chest Pain 07/05/16 03:30 08/04/16 03:29 Ondansetron HCl (Zofran) 4 mg Q6H PRN IVP Nausea & Vomiting 07/05/16 06:15 08/04/16 06:14 Polyethylene Glycol (Miralax) 17 gm BEDTIME ORAL 07/05/16 21:00 08/04/16 20:59 07/06/16 21:20 Polyethylene Glycol (Miralax) 17 gm HSPRN PRN ORAL Constipation 07/05/16 06:15 08/04/16 06:14 Sodium Chloride (Sodium Chloride 1000ml bag) 1,000 ml @ 50 mls/hr Q20H IV 07/05/16 03:30 08/04/16 03:29 07/06/16 00:00 Temazepam (Restoril) 15 mg HSPRN PRN ORAL Insomnia 07/05/16 06:15 07/12/16 06:14 Allergies: Coded Allergies: PENICILLIN G (Verified Allergy, Intermediate, 07/04/16) Verified on 07/03/2016 from [facility] (Verified Adverse Reaction, Unknown, heart block, 07/05/16) developed 2nd degree heart block during Adenosine stress test. Test stopped ROS Limited/Unobtainable: No Constitutional: Reports: no symptoms HEENT: Reports: no symptoms Cardiovascular: Reports: chest pain Respiratory: Reports: no symptoms Gastrointestinal/Abdominal: Reports: no symptoms Genitourinary: Reports: no symptoms Neurologic/Psychiatric: Reports: no symptoms Subjective 85 YO F admitted with chest pain. Cover for Int Daren-Dr Angeles. Nuclear Stress test inconclusive. Objective Last Vital Signs Date Time Temp Pulse Resp B/P Pulse Ox O2 Delivery O2 Flow Rate FiO2 07/07/16 09:09 158/87 07/07/16 09:08 70 07/07/16 08:25 97.0 20 98 Room Air Laboratory Tests Test 07/07/16 05:45 White Blood Count 6.9 K/UL (4.8-10.8) Red Blood Count 3.22 M/UL (4.20-5.40) L Hemoglobin 9.6 G/DL (12.0-16.0) L Hematocrit 29.3 % (37.0-47.0) L Mean Corpuscular Volume 91 FL (80-99) Mean Corpuscular Hemoglobin 29.8 PG (27.0-31.0) Mean Corpuscular Hemoglobin Concent 32.7 G/DL (32.0-36.0) Red Cell Distribution Width 11.8 % (11.6-14.8) Platelet Count 245 K/UL (150-450) Mean Platelet Volume 6.0 FL (6.5-10.1) L Neutrophils (%) (Auto) 67.8 % (45.0-75.0) Lymphocytes (%) (Auto) 20.1 % (20.0-45.0) Monocytes (%) (Auto) 8.2 % (1.0-10.0) Eosinophils (%) (Auto) 3.0 % (0.0-3.0) Basophils (%) (Auto) 0.9 % (0.0-2.0) Sodium Level 142 mEQ/L (135-145) Potassium Level 4.9 mEQ/L (3.4-4.9) Chloride Level 107 mEQ/L (98-107) Carbon Dioxide Level 18 mEQ/L (20-30) L Anion Gap 17 (5-15) H Blood Urea Nitrogen 32 mg/dL (7-23) H Creatinine 2.8 mg/dL (0.5-0.9) H Estimat Glomerular Filtration Rate mL/min (>60) Glucose Level 129 mg/dL (74-106) H Calcium Level 9.5 mg/dL (8.6-10.2) Microbiology Date/Time Source Procedure Growth Status 07/05/16 16:00 Urine,Clean Catch Urine Culture - Preliminary Mixed Gram Positive Organism Resulted Intake and Output 07/06/16 07/07/16 19:00 07:00 Intake Total 720 ml 350 ml Output Total 450 ml 350 ml Balance 270 ml 0 ml Intake Oral 120 ml IV Total 600 ml 350 ml Output Urine Total 450 ml 350 ml # Voids 1 # Bowel Movements 1 Objective General Appearance: WD/WN, no apparent distress, alert EENT: PERRL/EOMI, normal ENT inspection Neck: non-tender, normal alignment, supple, normal inspection Cardiovascular: normal peripheral pulses, normal rate, regular rhythm, no gallop/murmur, no JVD Respiratory/Chest: chest wall non-tender, lungs clear, normal breath sounds, no respiratory distress, no accessory muscle use Abdomen: normal bowel sounds, non tender, soft, no organomegaly, no mass Extremities: normal range of motion, non-tender 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 Nuclear stress test inconclusive; await cardiology recs. (2) HTN (hypertension) Assessment & Plan: Continue procardia (3) Hypercholesteremia (4) Renal failure Assessment & Plan: Await nephrology consult (5) Diabetes mellitus Assessment & Plan: cont levemir and novolog sliding scale. (6) Anemia Status: stable LEANDRA COSTELLO Jul 07, 2016 11:40
[2016-07-07 11:48] VITALS: BP 167/81
--- NOTE | 2016-07-07 12:15 | General Progress Note ---
Assessment/Plan Status: stable Status Narrative Cr unchanged- Assessment/Plan status; Renal failure likely chronic due to long history of DM and HTN UA: 3+ Protein- Evidence of UTI Admitted with chest pain, high risk for CAD. other conditions: 1. Chronic constipation. 2. Hypertension. 3. Diabetes. 4. Chronic renal insufficiency per patient. 5. Anemia per patient. Past surgeries: 1. Tubal ligation. 2. Hysterectomy. Plan: adjust BP meds- Change IV pepcid to po Protonix Slow Hydrate- Monitor renal parameters- check urine analysis and urine studies- Avoid nephrotoxics- per orders JOHN: Equivocal mild increased renal echogenicity and renal cortical thinning, if real could indicate early medical renal disease Negative for hydronephrosis. Subjective ROS Limited/Unobtainable: No Constitutional: Reports: malaise Allergies: Coded Allergies: PENICILLIN G (Verified Allergy, Intermediate, 07/04/16) Verified on 07/03/2016 from [facility] ADENOSINE (Verified Adverse Reaction, Unknown, heart block, 07/05/16) developed 2nd degree heart block during Adenosine stress test. Test stopped Objective Last 24 Hour Vital Signs Date Time Temp Pulse Resp B/P Pulse Ox O2 Delivery O2 Flow Rate FiO2 07/07/16 11:48 97.5 71 20 167/81 100 Room Air 07/07/16 09:09 158/87 07/07/16 09:08 70 158/87 07/07/16 08:25 97.0 70 20 158/87 98 Room Air 07/07/16 08:00 78 07/07/16 04:20 97.0 83 20 155/77 100 Room Air 07/07/16 04:00 73 07/07/16 00:10 97.0 70 20 134/65 99 07/07/16 00:00 62 07/06/16 20:00 79 18 132/77 100 Room Air 07/06/16 20:00 69 07/06/16 16:00 96.0 68 18 132/84 100 Room Air 07/06/16 16:00 69 07/06/16 12:42 97.0 74 20 141/72 97 Room Air Intake and Output 07/06/16 07/07/16 19:00 07:00 Intake Total 720 ml 350 ml Output Total 450 ml 350 ml Balance 270 ml 0 ml Intake Oral 120 ml IV Total 600 ml 350 ml Output Urine Total 450 ml 350 ml # Voids 1 # Bowel Movements 1 Laboratory Tests 07/07/16 05:45: White Blood Count 6.9, Red Blood Count 3.22L, Hemoglobin 9.6L, Hematocrit 29.3L , Mean Corpuscular Volume 91, Mean Corpuscular Hemoglobin 29.8, Mean Corpuscular Hemoglobin Concent 32.7, Red Cell Distribution Width 11.8, Platelet Count 245, Mean Platelet Volume 6.0L, Neutrophils (%) (Auto) 67.8, Lymphocytes ( %) (Auto) 20.1, Monocytes (%) (Auto) 8.2, Eosinophils (%) (Auto) 3.0, Basophils (%) (Auto) 0.9, Sodium Level 142, Potassium Level 4.9, Chloride Level 107, Carbon Dioxide Level 18L, Anion Gap 17H, Blood Urea Nitrogen 32H, Creatinine 2.8H, Estimat Glomerular Filtration Rate , Glucose Level 129H, Calcium Level 9.5 Height (Feet): 5 Height (Inches): 5.00 Weight (Pounds): 185 General Appearance: no apparent distress Objective PE not changed HENRY BORDEN Jul 07, 2016 12:15
--- NOTE | 2016-07-07 13:25 | GI Progress Note ---
Assessment/Plan Problems: (1) Constipated ICD Codes: K59.00 - Constipation, unspecified SNOMED: 97413940 (2) Anemia ICD Codes: D64.9 - Anemia, unspecified SNOMED: 294988409 Qualifiers: (3) Diabetes mellitus ICD Codes: E11.9 - Type 2 diabetes mellitus without complications SNOMED: 62451321 Qualifiers: (4) Intractable abdominal pain ICD Codes: R10.9 - Unspecified abdominal pain SNOMED: 56362297, 961580872 Status: stable Status Narrative Discussed with Dr. Narvaez. Assessment/Plan ASSESSMENT AND PLAN: 1. Anemia. 2. Renal insufficiency. 3. Hypertension. 4. Diabetes. 5. Chronic constipation. abd U/S >> unremarkable stress test >> inconclusive BM x 1 PLAN: defer GI procedures at this time anemia due to hx of renal insufficiency will consider GI procedures if indicated ADA diet bowel regime Lactulose ATC OB stool uncollected H2 PT eval fu labs The patient was seen and examined at bedside and all new and available data was reviewed in the patients chart. I agree with the above findings, impression and plan. (Patient seen earlier today. Signature stamp does not reflect patient encounter time.). -Hemal Narvaez MD Subjective Subjective denies any abdominal pain Objective Last 24 Hour Vital Signs Date Time Temp Pulse Resp B/P Pulse Ox O2 Delivery O2 Flow Rate FiO2 07/07/16 11:48 97.5 71 20 167/81 100 Room Air 07/07/16 09:09 158/87 07/07/16 09:08 70 158/87 07/07/16 08:25 97.0 70 20 158/87 98 Room Air 07/07/16 08:00 78 07/07/16 04:20 97.0 83 20 155/77 100 Room Air 07/07/16 04:00 73 07/07/16 00:10 97.0 70 20 134/65 99 07/07/16 00:00 62 07/06/16 20:00 79 18 132/77 100 Room Air 07/06/16 20:00 69 07/06/16 16:00 96.0 68 18 132/84 100 Room Air 07/06/16 16:00 69 Intake and Output 07/06/16 07/07/16 19:00 07:00 Intake Total 720 ml 350 ml Output Total 450 ml 350 ml Balance 270 ml 0 ml Intake Oral 120 ml IV Total 600 ml 350 ml Output Urine Total 450 ml 350 ml # Voids 1 # Bowel Movements 1 Laboratory Tests Test 07/07/16 05:45 White Blood Count 6.9 K/UL (4.8-10.8) Red Blood Count 3.22 M/UL (4.20-5.40) L Hemoglobin 9.6 G/DL (12.0-16.0) L Hematocrit 29.3 % (37.0-47.0) L Mean Corpuscular Volume 91 FL (80-99) Mean Corpuscular Hemoglobin 29.8 PG (27.0-31.0) Mean Corpuscular Hemoglobin Concent 32.7 G/DL (32.0-36.0) Red Cell Distribution Width 11.8 % (11.6-14.8) Platelet Count 245 K/UL (150-450) Mean Platelet Volume 6.0 FL (6.5-10.1) L Neutrophils (%) (Auto) 67.8 % (45.0-75.0) Lymphocytes (%) (Auto) 20.1 % (20.0-45.0) Monocytes (%) (Auto) 8.2 % (1.0-10.0) Eosinophils (%) (Auto) 3.0 % (0.0-3.0) Basophils (%) (Auto) 0.9 % (0.0-2.0) Sodium Level 142 mEQ/L (135-145) Potassium Level 4.9 mEQ/L (3.4-4.9) Chloride Level 107 mEQ/L (98-107) Carbon Dioxide Level 18 mEQ/L (20-30) L Anion Gap 17 (5-15) H Blood Urea Nitrogen 32 mg/dL (7-23) H Creatinine 2.8 mg/dL (0.5-0.9) H Estimat Glomerular Filtration Rate mL/min (>60) Glucose Level 129 mg/dL (74-106) H Calcium Level 9.5 mg/dL (8.6-10.2) Height (Feet): 5 Height (Inches): 5.00 Weight (Pounds): 185 General Appearance: no apparent distress, alert, obese Cardiovascular: normal rate Respiratory/Chest: normal breath sounds, no respiratory distress Abdominal Exam: normal bowel sounds, non tender, soft Objective BM x 1 Priscila Freeman N.P. Jul 07, 2016 13:25 HEMAL NARVAEZ Jul 12, 2016 08:11
--- NOTE | 2016-07-07 14:48 | Pulmonology Progress Note ---
Assessment/Plan Problems: (1) Chest pain (2) Renal failure (3) Anemia (4) Diabetes mellitus (5) Hypercholesteremia (6) HTN (hypertension) Assessment/Plan stress study showing possible ischmia acute SC ruled out watch bun/creatinine f/u by renal watch bp waiting for cardiology recommendation Subjective ROS Limited/Unobtainable: No Interval Events: no new complains Allergies: Coded Allergies: PENICILLIN G (Verified Allergy, Intermediate, 07/04/16) Verified on 07/03/2016 from [facility] ADENOSINE (Verified Adverse Reaction, Unknown, heart block, 07/05/16) developed 2nd degree heart block during Adenosine stress test. Test stopped Objective Last 24 Hour Vital Signs Date Time Temp Pulse Resp B/P Pulse Ox O2 Delivery O2 Flow Rate FiO2 07/07/16 12:00 99 07/07/16 11:48 97.5 71 20 167/81 100 Room Air 07/07/16 09:09 158/87 07/07/16 09:08 70 158/87 07/07/16 08:25 97.0 70 20 158/87 98 Room Air 07/07/16 08:00 78 07/07/16 04:20 97.0 83 20 155/77 100 Room Air 07/07/16 04:00 73 07/07/16 00:10 97.0 70 20 134/65 99 07/07/16 00:00 62 07/06/16 20:00 79 18 132/77 100 Room Air 07/06/16 20:00 69 07/06/16 16:00 96.0 68 18 132/84 100 Room Air 07/06/16 16:00 69 Intake and Output 07/06/16 07/07/16 19:00 07:00 Intake Total 720 ml 350 ml Output Total 450 ml 350 ml Balance 270 ml 0 ml Intake Oral 120 ml IV Total 600 ml 350 ml Output Urine Total 450 ml 350 ml # Voids 1 # Bowel Movements 1 General Appearance: WD/WN HEENT: normocephalic, atraumatic Respiratory/Chest: chest wall non-tender, lungs clear Cardiovascular: normal peripheral pulses, normal rate Abdomen: normal bowel sounds, soft, non tender Extremities: no cyanosis Skin: no rash 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 normal Microbiology Date/Time Source Procedure Growth Status 07/05/16 16:00 Urine,Clean Catch Urine Culture - Preliminary Mixed Gram Positive Organism Resulted Laboratory Tests 07/07/16 05:45: White Blood Count 6.9, Red Blood Count 3.22L, Hemoglobin 9.6L, Hematocrit 29.3L , Mean Corpuscular Volume 91, Mean Corpuscular Hemoglobin 29.8, Mean Corpuscular Hemoglobin Concent 32.7, Red Cell Distribution Width 11.8, Platelet Count 245, Mean Platelet Volume 6.0L, Neutrophils (%) (Auto) 67.8, Lymphocytes ( %) (Auto) 20.1, Monocytes (%) (Auto) 8.2, Eosinophils (%) (Auto) 3.0, Basophils (%) (Auto) 0.9, Sodium Level 142, Potassium Level 4.9, Chloride Level 107, Carbon Dioxide Level 18L, Anion Gap 17H, Blood Urea Nitrogen 32H, Creatinine 2.8H, Estimat Glomerular Filtration Rate , Glucose Level 129H, Calcium Level 9.5 07/07/16 11:25: Stool Occult Blood Negative 07/07/16 11:50: Stool Occult Blood Negative Current Medications Medications (Trade) Dose Ordered Sig/Bryce Route PRN Reason Start Time Stop Time Status Last Admin Dose Admin Acetaminophen (Tylenol) 650 mg Q4H PRN ORAL fever 07/05/16 06:15 08/04/16 06:14 Aspirin (ASA) 81 mg DAILY ORAL 07/05/16 09:00 08/04/16 08:59 07/07/16 09:09 Atorvastatin Calcium (Lipitor) 20 mg BEDTIME ORAL 07/05/16 21:00 08/04/16 20:59 07/06/16 21:19 Clonidine HCl (Catapres) 0.1 mg Q4H PRN ORAL hypertension 07/05/16 18:15 08/04/16 18:14 Clopidogrel Bisulfate (Plavix) 75 mg DAILY ORAL 07/05/16 09:00 08/04/16 08:59 07/07/16 09:08 Dextrose (Dextrose 50%) STAT PRN IV Hypoglycemia 07/05/16 06:15 08/04/16 06:14 Docusate Sodium (Colace) 100 mg THREE TIMES A DAY ORAL 07/05/16 13:00 08/04/16 12:59 07/07/16 12:07 Heparin Sodium (Porcine) (Heparin 5000 units/ml) 5,000 units EVERY 12 HOURS SUBQ 07/05/16 09:00 08/04/16 08:59 07/07/16 09:13 Insulin Aspart (NovoLOG) BEFORE MEALS AND HS SUBQ 07/05/16 06:30 08/04/16 06:29 Insulin Detemir (Levemir) 10 units BEDTIME SUBQ 07/05/16 21:00 08/04/16 20:59 Irbesartan (Avapro) 150 mg DAILY ORAL 07/05/16 09:00 08/04/16 08:59 07/07/16 09:09 Lactulose (Cephulac) 20 gm THREE TIMES A DAY ORAL 07/06/16 14:00 08/05/16 13:59 07/07/16 12:06 Morphine Sulfate (Morphine Sulfate) 2 mg Q4H PRN IVP severe Pain (Pain Scale 7-10) 07/05/16 05:00 07/12/16 04:59 Nifedipine (Procardia XL) 60 mg Q12HR ORAL 07/08/16 09:00 08/07/16 08:59 Nitroglycerin (Ntg) 0.4 mg Q5M X 3 DOSES PRN SL Prn Chest Pain 07/05/16 03:30 08/04/16 03:29 Ondansetron HCl (Zofran) 4 mg Q6H PRN IVP Nausea & Vomiting 07/05/16 06:15 08/04/16 06:14 Pantoprazole (Protonix) 40 mg DAILY ORAL 07/07/16 13:00 08/06/16 12:59 07/07/16 12:52 Polyethylene Glycol (Miralax) 17 gm BEDTIME ORAL 07/05/16 21:00 08/04/16 20:59 07/06/16 21:20 Polyethylene Glycol (Miralax) 17 gm HSPRN PRN ORAL Constipation 07/05/16 06:15 08/04/16 06:14 Sodium Chloride (Sodium Chloride 1000ml bag) 1,000 ml @ 50 mls/hr Q20H IV 07/05/16 03:30 08/04/16 03:29 07/06/16 00:00 Temazepam (Restoril) 15 mg HSPRN PRN ORAL Insomnia 07/05/16 06:15 07/12/16 06:14 DANNY RYEES Jul 07, 2016 14:48
[2016-07-07 16:00] VITALS: BP 165/102
--- NOTE | 2016-07-07 16:50 | Cardiac Electrophysiology PN ---
Assessment/Plan Assessment/Plan 1. Chest pain. Was ruled out for myocardial infarction. Echocardiogram showed normal left ventricular systolic function. Nuclear stress test results from was inconclusive in view of heart block with adenosine. Will reschedule for Dobutamine echo in AM. 2. Hyperlipidemia, on Lipitor. 3. Hypertension, on Procardia XL 90 mg daily and Avapro 150 mg daily and p.r.n. clonidine. 4. Renal failure. Creatinine of 2.7. Follow up with Dr. Brasher. 5. Diabetes. 6. Anemia. CARROL RN Subjective Subjective No chest pain or SOB.No arrhythmias on tele. Objective Last 24 Hour Vital Signs Date Time Temp Pulse Resp B/P Pulse Ox O2 Delivery O2 Flow Rate FiO2 07/07/16 16:00 97.8 71 21 165/102 96 Room Air 07/07/16 12:00 99 07/07/16 11:48 97.5 71 20 167/81 100 Room Air 07/07/16 09:09 158/87 07/07/16 09:08 70 158/87 07/07/16 08:25 97.0 70 20 158/87 98 Room Air 07/07/16 08:00 78 07/07/16 04:20 97.0 83 20 155/77 100 Room Air 07/07/16 04:00 73 07/07/16 00:10 97.0 70 20 134/65 99 07/07/16 00:00 62 07/06/16 20:00 79 18 132/77 100 Room Air 07/06/16 20:00 69 Intake and Output 07/06/16 07/07/16 19:00 07:00 Intake Total 720 ml 350 ml Output Total 450 ml 350 ml Balance 270 ml 0 ml Intake Oral 120 ml IV Total 600 ml 350 ml Output Urine Total 450 ml 350 ml # Voids 1 # Bowel Movements 1 Laboratory Tests Test 07/07/16 05:45 07/07/16 11:25 07/07/16 11:50 White Blood Count 6.9 K/UL (4.8-10.8) Red Blood Count 3.22 M/UL (4.20-5.40) L Hemoglobin 9.6 G/DL (12.0-16.0) L Hematocrit 29.3 % (37.0-47.0) L Mean Corpuscular Volume 91 FL (80-99) Mean Corpuscular Hemoglobin 29.8 PG (27.0-31.0) Mean Corpuscular Hemoglobin Concent 32.7 G/DL (32.0-36.0) Red Cell Distribution Width 11.8 % (11.6-14.8) Platelet Count 245 K/UL (150-450) Mean Platelet Volume 6.0 FL (6.5-10.1) L Neutrophils (%) (Auto) 67.8 % (45.0-75.0) Lymphocytes (%) (Auto) 20.1 % (20.0-45.0) Monocytes (%) (Auto) 8.2 % (1.0-10.0) Eosinophils (%) (Auto) 3.0 % (0.0-3.0) Basophils (%) (Auto) 0.9 % (0.0-2.0) Sodium Level 142 mEQ/L (135-145) Potassium Level 4.9 mEQ/L (3.4-4.9) Chloride Level 107 mEQ/L (98-107) Carbon Dioxide Level 18 mEQ/L (20-30) L Anion Gap 17 (5-15) H Blood Urea Nitrogen 32 mg/dL (7-23) H Creatinine 2.8 mg/dL (0.5-0.9) H Estimat Glomerular Filtration Rate mL/min (>60) Glucose Level 129 mg/dL (74-106) H Calcium Level 9.5 mg/dL (8.6-10.2) Stool Occult Blood Negative (NEGATIVE) Negative (NEGATIVE) Microbiology Date/Time Source Procedure Growth Status 07/05/16 16:00 Urine,Clean Catch Urine Culture - Preliminary Mixed Gram Positive Organism Resulted Objective HEENT: Head and neck showed no JVD or carotid bruits. LUNGS: Clear. CARDIOVASCULAR: Shows regular S1 and S2 with no gallop or murmur. ABDOMEN: Soft and obese. EXTREMITIES: There is 1+ pitting edema. SU SHAFFER Jul 07, 2016 16:50
[2016-07-07 20:00] VITALS: BP 147/84
[2016-07-07] MEDS: Miralax 17gm pkt ORAL SCH (20:46)
[2016-07-07] MEDS: Levemir Flexpen SUBQ SCH (21:00)
[2016-07-07] MEDS: Atorvastatin 20mg tab ORAL SCH (21:43)
[2016-07-08] VITALS: BP 180/82
[2016-07-08 04:00] VITALS: BP 161/79
[2016-07-08] MEDS: NovoLOG Insulin Flexpen SUBQ SCH ×4 (06:30→21:42)
[2016-07-08 07:59] VITALS: BP 123/64
[2016-07-08 08:28] LABS: BASOPHILS % (AUTO) 1.3 % (0.0-2.0); EOSINOPHILS % (AUTO) 5.5 % (0.0-3.0); LYMPHOCYTES % (AUTO) 27.2 % (20.0-45.0); MEAN CORPUSCULAR HEMOGLOBIN 29.8 PG (27.0-31.0); MEAN CORPUSCULAR HGB CONC 32.6 G/DL (32.0-36.0); MEAN CORPUSCULAR VOLUME 91 FL (80-99); MEAN PLATELET VOLUME 6.7 FL (6.5-10.1); MONOCYTES % (AUTO) 8.6 % (1.0-10.0); NEUTROPHILS % (AUTO) 57.3 % (45.0-75.0); PLATELET COUNT 249 K/UL (150-450); RED BLOOD COUNT 3.21 M/UL (4.20-5.40); RED CELL DISTRIBUTION WIDTH 12.5 % (11.6-14.8); WHITE BLOOD COUNT 4.7 K/UL (4.8-10.8)
[2016-07-08 08:43] LABS: ALANINE AMINOTRANSFERASE 10 U/L (3-33); ALBUMIN/GLOBULIN RATIO 1.3 (1.0-2.7); ANION GAP 16 (5-15); ASPARTATE AMINO TRANSFERASE 15 U/L (5-40); CARBON DIOXIDE 18 mEQ/L (20-30); CHLORIDE 107 mEQ/L (98-107); HEMOLYSIS 7; MAGNESIUM 1.6 mg/dL (1.7-2.5); PHOSPHORUS 4.2 mg/dL (2.5-4.8); POTASSIUM 4.8 mEQ/L (3.4-4.9); SODIUM 141 mEQ/L (135-145); TOTAL PROTEIN 6.5 g/dL (6.6-8.7); URIC ACID 6.1 mg/dL (3.0-7.5)
[2016-07-08] MEDS: Aspirin Baby 81mg ORAL SCH (10:19)
[2016-07-08] MEDS: Docusate 100mg cap ORAL SCH ×3 (10:22→17:57)
[2016-07-08] MEDS: Lactulose 20gm/30ml UDC ORAL SCH ×3 (10:24→17:57)
[2016-07-08] MEDS: Irbesartan 150mg tablet ORAL SCH (10:27)
[2016-07-08] MEDS: Heparin 5000 units/ml inj SUBQ SCH ×2 (10:30→21:12)
--- NOTE | 2016-07-08 11:05 | GI Progress Note ---
Assessment/Plan Problems: (1) Constipated ICD Codes: K59.00 - Constipation, unspecified SNOMED: 65551514 (2) Anemia ICD Codes: D64.9 - Anemia, unspecified SNOMED: 562567517 Qualifiers: (3) Diabetes mellitus ICD Codes: E11.9 - Type 2 diabetes mellitus without complications SNOMED: 50563762 Qualifiers: (4) Intractable abdominal pain ICD Codes: R10.9 - Unspecified abdominal pain SNOMED: 47735907, 140758234 Status: unchanged Status Narrative Discussed with Dr. Narvaez. Assessment/Plan ASSESSMENT AND PLAN: 1. Anemia. 2. Renal insufficiency. 3. Hypertension. 4. Diabetes. 5. Chronic constipation. abd U/S >> unremarkable stress test repeated today BM x 1 OB stool negative x 2 PLAN: defer GI procedures at this time anemia due to hx of renal insufficiency will consider GI procedures if indicated ADA diet bowel regime Lactulose ATC H2 PT eval fu labs Subjective Gastrointestinal/Abdominal: Reports: no symptoms Subjective denies any abdominal pain Objective Last 24 Hour Vital Signs Date Time Temp Pulse Resp B/P Pulse Ox O2 Delivery O2 Flow Rate FiO2 07/08/16 10:27 123/64 07/08/16 10:17 55 123/64 07/08/16 07:59 97.0 55 18 123/64 98 07/08/16 05:37 161/79 07/08/16 04:00 71 07/08/16 04:00 97.6 75 20 161/79 100 Room Air 07/08/16 00:00 97.7 67 16 180/82 100 Room Air 07/08/16 00:00 72 07/07/16 20:00 74 07/07/16 20:00 97.4 70 20 147/84 97 Room Air 07/07/16 16:00 68 07/07/16 16:00 97.8 71 21 165/102 96 Room Air 07/07/16 12:00 99 07/07/16 11:48 97.5 71 20 167/81 100 Room Air Intake and Output 07/07/16 07/08/16 19:00 07:00 Intake Total 240 ml 600 ml Output Total 300 ml Balance 240 ml 300 ml Intake Oral 240 ml 600 ml Output Urine Total 300 ml # Voids 2 2 Laboratory Tests Test 07/07/16 11:25 07/07/16 11:50 07/08/16 07:25 Stool Occult Blood Negative (NEGATIVE) Negative (NEGATIVE) White Blood Count 4.7 K/UL (4.8-10.8) L Red Blood Count 3.21 M/UL (4.20-5.40) L Hemoglobin 9.6 G/DL (12.0-16.0) L Hematocrit 29.4 % (37.0-47.0) L Mean Corpuscular Volume 91 FL (80-99) Mean Corpuscular Hemoglobin 29.8 PG (27.0-31.0) Mean Corpuscular Hemoglobin Concent 32.6 G/DL (32.0-36.0) Red Cell Distribution Width 12.5 % (11.6-14.8) Platelet Count 249 K/UL (150-450) Mean Platelet Volume 6.7 FL (6.5-10.1) Neutrophils (%) (Auto) 57.3 % (45.0-75.0) Lymphocytes (%) (Auto) 27.2 % (20.0-45.0) Monocytes (%) (Auto) 8.6 % (1.0-10.0) Eosinophils (%) (Auto) 5.5 % (0.0-3.0) H Basophils (%) (Auto) 1.3 % (0.0-2.0) Sodium Level 141 mEQ/L (135-145) Potassium Level 4.8 mEQ/L (3.4-4.9) Chloride Level 107 mEQ/L (98-107) Carbon Dioxide Level 18 mEQ/L (20-30) L Anion Gap 16 (5-15) H Blood Urea Nitrogen 29 mg/dL (7-23) H Creatinine 3.0 mg/dL (0.5-0.9) H Estimat Glomerular Filtration Rate mL/min (>60) Glucose Level 120 mg/dL (74-106) H Uric Acid 6.1 mg/dL (3.0-7.5) Calcium Level 9.0 mg/dL (8.6-10.2) Phosphorus Level 4.2 mg/dL (2.5-4.8) Magnesium Level 1.6 mg/dL (1.7-2.5) L Total Bilirubin 0.2 mg/dL (0.0-1.2) Aspartate Amino Transf (AST/SGOT) 15 U/L (5-40) Alanine Aminotransferase (ALT/SGPT) 10 U/L (3-33) Alkaline Phosphatase 72 U/L (35-104) Total Protein 6.5 g/dL (6.6-8.7) L Albumin 3.7 g/dL (3.5-5.2) Globulin 2.8 g/dL Albumin/Globulin Ratio 1.3 (1.0-2.7) Height (Feet): 5 Height (Inches): 5.00 Weight (Pounds): 185 General Appearance: no apparent distress, alert, obese Cardiovascular: normal rate Respiratory/Chest: normal breath sounds, no respiratory distress Abdominal Exam: normal bowel sounds, non tender Priscila Freeman N.P. Jul 08, 2016 11:05
--- NOTE | 2016-07-08 11:12 | General Progress Note ---
Assessment/Plan Status: unchanged Status Narrative Cr 3 Assessment/Plan status; Renal failure likely chronic due to long history of DM and HTN UA: 3+ Protein- Evidence of UTI Admitted with chest pain, high risk for CAD. other conditions: 1. Chronic constipation. 2. Hypertension. 3. Diabetes. 4. Chronic renal insufficiency per patient. 5. Anemia per patient. Past surgeries: 1. Tubal ligation. 2. Hysterectomy. Plan: stop IV fluid- check 24 h urine for CrCl- adjust BP meds- po Protonix Monitor renal parameters- check urine analysis and urine studies- Avoid nephrotoxics- per orders JOHN: Equivocal mild increased renal echogenicity and renal cortical thinning, if real could indicate early medical renal disease Negative for hydronephrosis. Subjective ROS Limited/Unobtainable: No Constitutional: Reports: malaise Allergies: Coded Allergies: PENICILLIN G (Verified Allergy, Intermediate, 07/04/16) Verified on 07/03/[address] [facility] ADENOSINE (Verified Adverse Reaction, Unknown, heart block, 07/05/16) developed 2nd degree heart block during Adenosine stress test. Test stopped Objective Last 24 Hour Vital Signs Date Time Temp Pulse Resp B/P Pulse Ox O2 Delivery O2 Flow Rate FiO2 07/08/16 10:27 123/64 07/08/16 10:17 55 123/64 07/08/16 07:59 97.0 55 18 123/64 98 07/08/16 05:37 161/79 07/08/16 04:00 71 07/08/16 04:00 97.6 75 20 161/79 100 Room Air 07/08/16 00:00 97.7 67 16 180/82 100 Room Air 07/08/16 00:00 72 07/07/16 20:00 74 07/07/16 20:00 97.4 70 20 147/84 97 Room Air 07/07/16 16:00 68 07/07/16 16:00 97.8 71 21 165/102 96 Room Air 07/07/16 12:00 99 07/07/16 11:48 97.5 71 20 167/81 100 Room Air Intake and Output 07/07/16 07/08/16 19:00 07:00 Intake Total 240 ml 600 ml Output Total 300 ml Balance 240 ml 300 ml Intake Oral 240 ml 600 ml Output Urine Total 300 ml # Voids 2 2 Laboratory Tests 07/07/16 11:25: Stool Occult Blood Negative 07/07/16 11:50: Stool Occult Blood Negative 07/08/16 07:25: White Blood Count 4.7L, Red Blood Count 3.21L, Hemoglobin 9.6L, Hematocrit 29.4L , Mean Corpuscular Volume 91, Mean Corpuscular Hemoglobin 29.8, Mean Corpuscular Hemoglobin Concent 32.6, Red Cell Distribution Width 12.5, Platelet Count 249, Mean Platelet Volume 6.7, Neutrophils (%) (Auto) 57.3, Lymphocytes (% ) (Auto) 27.2, Monocytes (%) (Auto) 8.6, Eosinophils (%) (Auto) 5.5H, Basophils (%) (Auto) 1.3, Sodium Level 141, Potassium Level 4.8, Chloride Level 107, Carbon Dioxide Level 18L, Anion Gap 16H, Blood Urea Nitrogen 29H, Creatinine 3.0H, Estimat Glomerular Filtration Rate , Glucose Level 120H, Uric Acid 6.1, Calcium Level 9.0, Phosphorus Level 4.2, Magnesium Level 1.6L, Total Bilirubin 0.2, Aspartate Amino Transf (AST/SGOT) 15, Alanine Aminotransferase (ALT/SGPT) 10, Alkaline Phosphatase 72, Total Protein 6.5L, Albumin 3.7, Globulin 2.8, Albumin/Globulin Ratio 1.3 Height (Feet): 5 Height (Inches): 5.00 Weight (Pounds): 185 General Appearance: no apparent distress, confused Objective PE not changed HENRY BORDEN Jul 08, 2016 11:12
[2016-07-08 11:21] VITALS: BP 133/58
--- NOTE | 2016-07-08 12:25 | Pulmonology Progress Note ---
Assessment/Plan Problems: (1) Chest pain (2) Renal failure (3) Anemia (4) Diabetes mellitus (5) Hypercholesteremia (6) HTN (hypertension) Assessment/Plan dobutamine echo orderedd acute DE ruled out watch bun/creatinine f/u by renal watch bp dc home after stress testing Subjective ROS Limited/Unobtainable: No Interval Events: awaiting stress testing Allergies: Coded Allergies: PENICILLIN G (Verified Allergy, Intermediate, 07/04/16) Verified on 07/03/2016 from [facility] ADENOSINE (Verified Adverse Reaction, Unknown, heart block, 07/05/16) developed 2nd degree heart block during Adenosine stress test. Test stopped Objective Last 24 Hour Vital Signs Date Time Temp Pulse Resp B/P Pulse Ox O2 Delivery O2 Flow Rate FiO2 07/08/16 11:21 97.3 62 18 133/58 99 Room Air 07/08/16 10:27 123/64 07/08/16 10:17 55 123/64 07/08/16 07:59 97.0 55 18 123/64 98 07/08/16 05:37 161/79 07/08/16 04:00 71 07/08/16 04:00 97.6 75 20 161/79 100 Room Air 07/08/16 00:00 97.7 67 16 180/82 100 Room Air 07/08/16 00:00 72 07/07/16 20:00 74 07/07/16 20:00 97.4 70 20 147/84 97 Room Air 07/07/16 16:00 68 07/07/16 16:00 97.8 71 21 165/102 96 Room Air Intake and Output 07/07/16 07/08/16 19:00 07:00 Intake Total 240 ml 600 ml Output Total 300 ml Balance 240 ml 300 ml Intake Oral 240 ml 600 ml Output Urine Total 300 ml # Voids 2 2 General Appearance: WD/WN, no acute distress HEENT: normocephalic, atraumatic Respiratory/Chest: chest wall non-tender, lungs clear, normal breath sounds Breasts: no masses Cardiovascular: normal peripheral pulses, normal rate Abdomen: normal bowel sounds, soft, non tender, no organomegaly Extremities: no cyanosis Skin: no rash, no lesions, no ulcers Neurologic/Psychiatric: manager army II-XII grossly normal Microbiology Date/Time Source Procedure Growth Status 07/05/16 16:00 Urine,Clean Catch Urine Culture - Final Mixed Gram Positive Organism Complete Laboratory Tests 07/08/16 07:25: White Blood Count 4.7L, Red Blood Count 3.21L, Hemoglobin 9.6L, Hematocrit 29.4L , Mean Corpuscular Volume 91, Mean Corpuscular Hemoglobin 29.8, Mean Corpuscular Hemoglobin Concent 32.6, Red Cell Distribution Width 12.5, Platelet Count 249, Mean Platelet Volume 6.7, Neutrophils (%) (Auto) 57.3, Lymphocytes (% ) (Auto) 27.2, Monocytes (%) (Auto) 8.6, Eosinophils (%) (Auto) 5.5H, Basophils (%) (Auto) 1.3, Sodium Level 141, Potassium Level 4.8, Chloride Level 107, Carbon Dioxide Level 18L, Anion Gap 16H, Blood Urea Nitrogen 29H, Creatinine 3.0H, Estimat Glomerular Filtration Rate , Glucose Level 120H, Uric Acid 6.1, Calcium Level 9.0, Phosphorus Level 4.2, Magnesium Level 1.6L, Total Bilirubin 0.2, Aspartate Amino Transf (AST/SGOT) 15, Alanine Aminotransferase (ALT/SGPT) 10, Alkaline Phosphatase 72, Total Protein 6.5L, Albumin 3.7, Globulin 2.8, Albumin/Globulin Ratio 1.3 Current Medications Medications (Trade) Dose Ordered Sig/Bryce Route PRN Reason Start Time Stop Time Status Last Admin Dose Admin Acetaminophen (Tylenol) 650 mg Q4H PRN ORAL fever 07/05/16 06:15 08/04/16 06:14 Aspirin (ASA) 81 mg DAILY ORAL 07/05/16 09:00 08/04/16 08:59 07/08/16 10:19 Atorvastatin Calcium (Lipitor) 20 mg BEDTIME ORAL 07/05/16 21:00 08/04/16 20:59 07/07/16 21:43 Clonidine HCl (Catapres) 0.1 mg Q4H PRN ORAL hypertension 07/05/16 18:15 08/04/16 18:14 07/08/16 05:37 Clopidogrel Bisulfate (Plavix) 75 mg DAILY ORAL 07/05/16 09:00 08/04/16 08:59 07/08/16 10:14 Dextrose (Dextrose 50%) STAT PRN IV Hypoglycemia 07/05/16 06:15 08/04/16 06:14 Docusate Sodium (Colace) 100 mg THREE TIMES A DAY ORAL 07/05/16 13:00 08/04/16 12:59 07/08/16 10:22 Heparin Sodium (Porcine) (Heparin 5000 units/ml) 5,000 units EVERY 12 HOURS SUBQ 07/05/16 09:00 08/04/16 08:59 07/08/16 10:30 Insulin Aspart (NovoLOG) BEFORE MEALS AND HS SUBQ 07/05/16 06:30 08/04/16 06:29 07/08/16 11:52 Insulin Detemir (Levemir) 10 units BEDTIME SUBQ 07/05/16 21:00 08/04/16 20:59 Irbesartan (Avapro) 150 mg DAILY ORAL 07/05/16 09:00 08/04/16 08:59 07/08/16 10:27 Lactulose (Cephulac) 20 gm THREE TIMES A DAY ORAL 07/06/16 14:00 08/05/16 13:59 07/07/16 18:16 Magnesium Sulfate (Magnesium Sulfate 1gm/100ml) 100 ml @ 100 mls/hr Q1H IVPB 07/08/16 12:00 07/08/16 13:59 Morphine Sulfate (Morphine Sulfate) 2 mg Q4H PRN IVP severe Pain (Pain Scale 7-10) 07/05/16 05:00 07/12/16 04:59 Nifedipine 60 mg 60 mg Q12HR ORAL 07/08/16 09:00 08/07/16 08:59 07/08/16 10:17 Nitroglycerin (Ntg) 0.4 mg Q5M X 3 DOSES PRN SL Prn Chest Pain 07/05/16 03:30 08/04/16 03:29 Ondansetron HCl (Zofran) 4 mg Q6H PRN IVP Nausea & Vomiting 07/05/16 06:15 08/04/16 06:14 Pantoprazole (Protonix) 40 mg DAILY ORAL 07/07/16 13:00 08/06/16 12:59 07/08/16 10:14 Polyethylene Glycol (Miralax) 17 gm BEDTIME ORAL 07/05/16 21:00 08/04/16 20:59 07/06/16 21:20 Polyethylene Glycol (Miralax) 17 gm HSPRN PRN ORAL Constipation 07/05/16 06:15 08/04/16 06:14 Temazepam (Restoril) 15 mg HSPRN PRN ORAL Insomnia 07/05/16 06:15 07/12/16 06:14 DANNY REYES Jul 08, 2016 12:25
--- NOTE | 2016-07-08 12:36 | Diagnostic Imaging Report ---
APPROVED REPORT CPT Code: 14058 Present Symptoms Lower Extremity Pain: Bilateral BILATERAL: Imaging reveals a patent deep venous system bilaterally. There is no evidence of thrombus within the femoral, popliteal or tibial segments. The greater saphenous veins are also within normal limits. Doppler indicates normal spontaneous flow within these segments.
--- NOTE | 2016-07-08 15:26 | Internal Med Progress Note ---
Subjective Date of Service: Jul 08, 2016 Physician Name Leandra Costello Attending Physician Joe Angeles MD Current Medications Medications (Trade) Dose Ordered Sig/Bryce Route PRN Reason Start Time Stop Time Status Last Admin Dose Admin Acetaminophen (Tylenol) 650 mg Q4H PRN ORAL fever 07/05/16 06:15 08/04/16 06:14 Aspirin (ASA) 81 mg DAILY ORAL 07/05/16 09:00 08/04/16 08:59 07/08/16 10:19 Atorvastatin Calcium (Lipitor) 20 mg BEDTIME ORAL 07/05/16 21:00 08/04/16 20:59 07/07/16 21:43 Clonidine HCl (Catapres) 0.1 mg Q4H PRN ORAL hypertension 07/05/16 18:15 08/04/16 18:14 07/08/16 05:37 Clopidogrel Bisulfate (Plavix) 75 mg DAILY ORAL 07/05/16 09:00 08/04/16 08:59 07/08/16 10:14 Dextrose (Dextrose 50%) STAT PRN IV Hypoglycemia 07/05/16 06:15 08/04/16 06:14 Docusate Sodium (Colace) 100 mg THREE TIMES A DAY ORAL 07/05/16 13:00 08/04/16 12:59 07/08/16 10:22 Heparin Sodium (Porcine) (Heparin 5000 units/ml) 5,000 units EVERY 12 HOURS SUBQ 07/05/16 09:00 08/04/16 08:59 07/08/16 10:30 Insulin Aspart (NovoLOG) BEFORE MEALS AND HS SUBQ 07/05/16 06:30 08/04/16 06:29 07/08/16 11:52 Insulin Detemir (Levemir) 10 units BEDTIME SUBQ 07/05/16 21:00 08/04/16 20:59 Irbesartan (Avapro) 150 mg DAILY ORAL 07/05/16 09:00 08/04/16 08:59 07/08/16 10:27 Lactulose (Cephulac) 20 gm THREE TIMES A DAY ORAL 07/06/16 14:00 08/05/16 13:59 07/07/16 18:16 Morphine Sulfate (Morphine Sulfate) 2 mg Q4H PRN IVP severe Pain (Pain Scale 7-10) 07/05/16 05:00 07/12/16 04:59 Nifedipine (Procardia XL) 60 mg Q12HR ORAL 07/08/16 09:00 08/07/16 08:59 07/08/16 10:17 Nitroglycerin (Ntg) 0.4 mg Q5M X 3 DOSES PRN SL Prn Chest Pain 07/05/16 03:30 08/04/16 03:29 Ondansetron HCl (Zofran) 4 mg Q6H PRN IVP Nausea & Vomiting 07/05/16 06:15 08/04/16 06:14 Pantoprazole (Protonix) 40 mg DAILY ORAL 07/07/16 13:00 08/06/16 12:59 07/08/16 10:14 Polyethylene Glycol (Miralax) 17 gm BEDTIME ORAL 07/05/16 21:00 08/04/16 20:59 07/06/16 21:20 Polyethylene Glycol (Miralax) 17 gm HSPRN PRN ORAL Constipation 07/05/16 06:15 08/04/16 06:14 Temazepam (Restoril) 15 mg HSPRN PRN ORAL Insomnia 07/05/16 06:15 07/12/16 06:14 Allergies: Coded Allergies: PENICILLIN G (Verified Allergy, Intermediate, 07/04/16) Verified on 07/03/2016 from [facility] ADENOSINE (Verified Adverse Reaction, Unknown, heart block, 07/05/16) developed 2nd degree heart block during Adenosine stress test. Test stopped ROS Limited/Unobtainable: No Constitutional: Reports: no symptoms HEENT: Reports: no symptoms Cardiovascular: Reports: chest pain Respiratory: Reports: no symptoms Gastrointestinal/Abdominal: Reports: no symptoms Genitourinary: Reports: no symptoms Neurologic/Psychiatric: Reports: no symptoms Subjective 85 YO F admitted with chest pain. Cover for Int Daren-Dr Angeles. Nuclear Stress test inconclusive; await dobutamine echocardiogram Objective Last Vital Signs Date Time Temp Pulse Resp B/P Pulse Ox O2 Delivery O2 Flow Rate FiO2 07/08/16 12:00 07/08/16 11:21 97.3 18 133/58 99 Room Air Laboratory Tests Test 07/08/16 07:25 White Blood Count 4.7 K/UL (4.8-10.8) L Red Blood Count 3.21 M/UL (4.20-5.40) L Hemoglobin 9.6 G/DL (12.0-16.0) L Hematocrit 29.4 % (37.0-47.0) L Mean Corpuscular Volume 91 FL (80-99) Mean Corpuscular Hemoglobin 29.8 PG (27.0-31.0) Mean Corpuscular Hemoglobin Concent 32.6 G/DL (32.0-36.0) Red Cell Distribution Width 12.5 % (11.6-14.8) Platelet Count 249 K/UL (150-450) Mean Platelet Volume 6.7 FL (6.5-10.1) Neutrophils (%) (Auto) 57.3 % (45.0-75.0) Lymphocytes (%) (Auto) 27.2 % (20.0-45.0) Monocytes (%) (Auto) 8.6 % (1.0-10.0) Eosinophils (%) (Auto) 5.5 % (0.0-3.0) H Basophils (%) (Auto) 1.3 % (0.0-2.0) Sodium Level 141 mEQ/L (135-145) Potassium Level 4.8 mEQ/L (3.4-4.9) Chloride Level 107 mEQ/L (98-107) Carbon Dioxide Level 18 mEQ/L (20-30) L Anion Gap 16 (5-15) H Blood Urea Nitrogen 29 mg/dL (7-23) H Creatinine 3.0 mg/dL (0.5-0.9) H Estimat Glomerular Filtration Rate mL/min (>60) Glucose Level 120 mg/dL (74-106) H Uric Acid 6.1 mg/dL (3.0-7.5) Calcium Level 9.0 mg/dL (8.6-10.2) Phosphorus Level 4.2 mg/dL (2.5-4.8) Magnesium Level 1.6 mg/dL (1.7-2.5) L Total Bilirubin 0.2 mg/dL (0.0-1.2) Aspartate Amino Transf (AST/SGOT) 15 U/L (5-40) Alanine Aminotransferase (ALT/SGPT) 10 U/L (3-33) Alkaline Phosphatase 72 U/L (35-104) Total Protein 6.5 g/dL (6.6-8.7) L Albumin 3.7 g/dL (3.5-5.2) Globulin 2.8 g/dL Albumin/Globulin Ratio 1.3 (1.0-2.7) Microbiology Date/Time Source Procedure Growth Status 07/05/16 16:00 Urine,Clean Catch Urine Culture - Final Mixed Gram Positive Organism Complete Intake and Output 07/07/16 07/08/16 19:00 07:00 Intake Total 240 ml 600 ml Output Total 300 ml Balance 240 ml 300 ml Intake Oral 240 ml 600 ml Output Urine Total 300 ml # Voids 2 2 Objective General Appearance: WD/WN, no apparent distress, alert EENT: PERRL/EOMI, normal ENT inspection Neck: non-tender, normal alignment, supple, normal inspection Cardiovascular: normal peripheral pulses, normal rate, regular rhythm, no gallop/murmur, no JVD Respiratory/Chest: chest wall non-tender, lungs clear, normal breath sounds, no respiratory distress, no accessory muscle use Abdomen: normal bowel sounds, non tender, soft, no organomegaly, no mass Extremities: normal range of motion, non-tender Neurologic: table cover folder II-XII grossly normal Skin: normal pigmentation, warm/dry Assessment/Plan Problem List: (1) Chest pain Assessment & Plan: See cardiology consult. Nuclear stress test inconclusive; await dobutamine echocardiogram. (2) HTN (hypertension) Assessment & Plan: Continue procardia (3) Hypercholesteremia (4) Renal failure Assessment & Plan: Await nephrology consult (5) Diabetes mellitus Assessment & Plan: cont levemir and novolog sliding scale. (6) Anemia Status: progressing Assessment/Plan Discharge planning: D/C home if dobutamine echocardiogram normal. LEANDRA COSTELLO Jul 08, 2016 15:26
[2016-07-08 16:00] VITALS: BP 141/64
--- NOTE | 2016-07-08 17:23 | Cardiac Electrophysiology PN ---
Assessment/Plan Assessment/Plan 1. Chest pain. Ruled out for myocardial infarction. Echocardiogram showed normal left ventricular systolic function. Nuclear stress test results from was inconclusive in view of heart block with adenosine. Dobutamine Cardiolite done today. Results pending 2. Hyperlipidemia, on Lipitor. 3. Hypertension, on Procardia XL 90 and Avapro 150 mg daily 4. Renal failure. Creatinine of 2.7. 5. Diabetes. 6. Anemia. CARROL RN Subjective Subjective No chest pain or SOB.No arrhythmias on tele.Had Dobutamine Cardiolite today. Results pending. Objective Last 24 Hour Vital Signs Date Time Temp Pulse Resp B/P Pulse Ox O2 Delivery O2 Flow Rate FiO2 07/08/16 16:00 97.8 79 20 141/64 99 Room Air 07/08/16 12:00 07/08/16 11:21 97.3 62 18 133/58 99 Room Air 07/08/16 10:27 123/64 07/08/16 10:17 55 123/64 07/08/16 08:00 56 07/08/16 07:59 97.0 55 18 123/64 98 07/08/16 05:37 161/79 07/08/16 04:00 71 07/08/16 04:00 97.6 75 20 161/79 100 Room Air 07/08/16 00:00 97.7 67 16 180/82 100 Room Air 07/08/16 00:00 72 07/07/16 20:00 74 07/07/16 20:00 97.4 70 20 147/84 97 Room Air Intake and Output 07/07/16 07/08/16 19:00 07:00 Intake Total 240 ml 600 ml Output Total 300 ml Balance 240 ml 300 ml Intake Oral 240 ml 600 ml Output Urine Total 300 ml # Voids 2 2 Laboratory Tests Test 07/08/16 07:25 White Blood Count 4.7 K/UL (4.8-10.8) L Red Blood Count 3.21 M/UL (4.20-5.40) L Hemoglobin 9.6 G/DL (12.0-16.0) L Hematocrit 29.4 % (37.0-47.0) L Mean Corpuscular Volume 91 FL (80-99) Mean Corpuscular Hemoglobin 29.8 PG (27.0-31.0) Mean Corpuscular Hemoglobin Concent 32.6 G/DL (32.0-36.0) Red Cell Distribution Width 12.5 % (11.6-14.8) Platelet Count 249 K/UL (150-450) Mean Platelet Volume 6.7 FL (6.5-10.1) Neutrophils (%) (Auto) 57.3 % (45.0-75.0) Lymphocytes (%) (Auto) 27.2 % (20.0-45.0) Monocytes (%) (Auto) 8.6 % (1.0-10.0) Eosinophils (%) (Auto) 5.5 % (0.0-3.0) H Basophils (%) (Auto) 1.3 % (0.0-2.0) Sodium Level 141 mEQ/L (135-145) Potassium Level 4.8 mEQ/L (3.4-4.9) Chloride Level 107 mEQ/L (98-107) Carbon Dioxide Level 18 mEQ/L (20-30) L Anion Gap 16 (5-15) H Blood Urea Nitrogen 29 mg/dL (7-23) H Creatinine 3.0 mg/dL (0.5-0.9) H Estimat Glomerular Filtration Rate mL/min (>60) Glucose Level 120 mg/dL (74-106) H Uric Acid 6.1 mg/dL (3.0-7.5) Calcium Level 9.0 mg/dL (8.6-10.2) Phosphorus Level 4.2 mg/dL (2.5-4.8) Magnesium Level 1.6 mg/dL (1.7-2.5) L Total Bilirubin 0.2 mg/dL (0.0-1.2) Aspartate Amino Transf (AST/SGOT) 15 U/L (5-40) Alanine Aminotransferase (ALT/SGPT) 10 U/L (3-33) Alkaline Phosphatase 72 U/L (35-104) Total Protein 6.5 g/dL (6.6-8.7) L Albumin 3.7 g/dL (3.5-5.2) Globulin 2.8 g/dL Albumin/Globulin Ratio 1.3 (1.0-2.7) Objective HEENT: Head and neck showed no JVD or carotid bruits. LUNGS: Clear. CARDIOVASCULAR: Shows regular S1 and S2 with no gallop or murmur. ABDOMEN: Soft and obese. EXTREMITIES: There is 1+ pitting edema. SU SHAFFER Jul 08, 2016 17:23
[2016-07-08 20:00] VITALS: BP 137/63
[2016-07-08] MEDS: Miralax 17gm pkt ORAL SCH (21:00)
[2016-07-08] MEDS: Atorvastatin 20mg tab ORAL SCH (21:11)
[2016-07-08] MEDS: Levemir Flexpen SUBQ SCH (21:41)
[2016-07-09 00:25] VITALS: BP 125/59
[2016-07-09 04:10] VITALS: BP 109/57
[2016-07-09] MEDS: NovoLOG Insulin Flexpen SUBQ SCH ×3 (06:29→17:00)
[2016-07-09 07:45] LABS: EOSINOPHILS % (AUTO) 4.6 % (0.0-3.0); LYMPHOCYTES % (AUTO) 33.9 % (20.0-45.0); MEAN CORPUSCULAR HEMOGLOBIN 30.1 PG (27.0-31.0); MEAN CORPUSCULAR HGB CONC 33.1 G/DL (32.0-36.0); MEAN CORPUSCULAR VOLUME 91 FL (80-99); MEAN PLATELET VOLUME 6.8 FL (6.5-10.1); MONOCYTES % (AUTO) 9.4 % (1.0-10.0); NEUTROPHILS % (AUTO) 51.2 % (45.0-75.0); PLATELET COUNT 247 K/UL (150-450); RED CELL DISTRIBUTION WIDTH 12.5 % (11.6-14.8); WHITE BLOOD COUNT 6.7 K/UL (4.8-10.8)
[2016-07-09 07:55] VITALS: BP 113/55
[2016-07-09 08:05] LABS: ALANINE AMINOTRANSFERASE 11 U/L (3-33); ALBUMIN/GLOBULIN RATIO 1.2 (1.0-2.7); ANION GAP 16 (5-15); ASPARTATE AMINO TRANSFERASE 17 U/L (5-40); CALCIUM 9.1 mg/dL (8.6-10.2); CARBON DIOXIDE 18 mEQ/L (20-30); CHLORIDE 106 mEQ/L (98-107); HEMOLYSIS 2; MAGNESIUM 2.1 mg/dL (1.7-2.5); POTASSIUM 4.9 mEQ/L (3.4-4.9); SODIUM 140 mEQ/L (135-145); TOTAL PROTEIN 6.3 g/dL (6.6-8.7)
[2016-07-09] MEDS: Docusate 100mg cap ORAL SCH ×3 (09:00→17:44)
[2016-07-09] MEDS: Heparin 5000 units/ml inj SUBQ SCH (09:00)
[2016-07-09] MEDS: Aspirin Baby 81mg ORAL SCH (09:00)
[2016-07-09] MEDS: Irbesartan 150mg tablet ORAL SCH (09:00)
[2016-07-09] MEDS: Lactulose 20gm/30ml UDC ORAL SCH (09:00)
[2016-07-09] MEDS ORDERED: DOBUTamine 250mg/250ml Premix IV ONE (09:58)
--- NOTE | 2016-07-09 09:59 | GI Progress Note ---
Assessment/Plan Problems: (1) Constipated ICD Codes: K59.00 - Constipation, unspecified SNOMED: 57168845 (2) Anemia ICD Codes: D64.9 - Anemia, unspecified SNOMED: 083018127 Qualifiers: (3) Diabetes mellitus ICD Codes: E11.9 - Type 2 diabetes mellitus without complications SNOMED: 72022533 Qualifiers: (4) Intractable abdominal pain ICD Codes: R10.9 - Unspecified abdominal pain SNOMED: 84888833, 934371594 Status: stable Status Narrative Discussed with Dr. Narvaez. Assessment/Plan ASSESSMENT AND PLAN: 1. Anemia. 2. Renal insufficiency. 3. Hypertension. 4. Diabetes. 5. Chronic constipation. abd U/S >> unremarkable stress test reviewed BM x 1 OB stool negative x 2 PLAN: ok for DC per GI standpoint defer GI procedures at this time anemia due to hx of renal insufficiency will consider GI procedures if indicated ADA diet bowel regime Lactulose ATC >> decreased frequency today H2 PT eval fu labs Subjective Subjective denies any abdominal pain Objective Last 24 Hour Vital Signs Date Time Temp Pulse Resp B/P Pulse Ox O2 Delivery O2 Flow Rate FiO2 07/09/16 09:00 92 130/77 07/09/16 09:00 130/77 07/09/16 07:55 97.3 66 18 113/55 99 Room Air 07/09/16 04:10 97.7 69 20 109/57 100 Room Air 07/09/16 04:00 64 07/09/16 00:25 98.0 61 20 125/59 99 Room Air 07/09/16 00:00 68 07/08/16 21:26 59 137/70 07/08/16 20:00 55 07/08/16 20:00 97.7 66 21 137/63 100 Room Air 07/08/16 16:00 97.8 79 20 141/64 99 Room Air 07/08/16 16:00 48 07/08/16 12:00 07/08/16 11:21 97.3 62 18 133/58 99 Room Air 07/08/16 10:27 123/64 07/08/16 10:17 55 123/64 Intake and Output 07/08/16 07/09/16 19:00 07:00 Intake Total 200 ml 260 ml Output Total 500 ml 700 ml Balance -300 ml -440 ml Intake Oral 200 ml 260 ml Output Urine Total 500 ml 700 ml # Voids 2 Laboratory Tests Test 07/09/16 06:50 White Blood Count 6.7 K/UL (4.8-10.8) Red Blood Count 3.10 M/UL (4.20-5.40) L Hemoglobin 9.3 G/DL (12.0-16.0) L Hematocrit 28.2 % (37.0-47.0) L Mean Corpuscular Volume 91 FL (80-99) Mean Corpuscular Hemoglobin 30.1 PG (27.0-31.0) Mean Corpuscular Hemoglobin Concent 33.1 G/DL (32.0-36.0) Red Cell Distribution Width 12.5 % (11.6-14.8) Platelet Count 247 K/UL (150-450) Mean Platelet Volume 6.8 FL (6.5-10.1) Neutrophils (%) (Auto) 51.2 % (45.0-75.0) Lymphocytes (%) (Auto) 33.9 % (20.0-45.0) Monocytes (%) (Auto) 9.4 % (1.0-10.0) Eosinophils (%) (Auto) 4.6 % (0.0-3.0) H Basophils (%) (Auto) 1.0 % (0.0-2.0) Sodium Level 140 mEQ/L (135-145) Potassium Level 4.9 mEQ/L (3.4-4.9) Chloride Level 106 mEQ/L (98-107) Carbon Dioxide Level 18 mEQ/L (20-30) L Anion Gap 16 (5-15) H Blood Urea Nitrogen 31 mg/dL (7-23) H Creatinine 3.0 mg/dL (0.5-0.9) H Estimat Glomerular Filtration Rate mL/min (>60) Glucose Level 86 mg/dL (74-106) Calcium Level 9.1 mg/dL (8.6-10.2) Phosphorus Level 4.0 mg/dL (2.5-4.8) Magnesium Level 2.1 mg/dL (1.7-2.5) Total Bilirubin 0.2 mg/dL (0.0-1.2) Aspartate Amino Transf (AST/SGOT) 17 U/L (5-40) Alanine Aminotransferase (ALT/SGPT) 11 U/L (3-33) Alkaline Phosphatase 71 U/L (35-104) Total Protein 6.3 g/dL (6.6-8.7) L Albumin 3.5 g/dL (3.5-5.2) Globulin 2.8 g/dL Albumin/Globulin Ratio 1.2 (1.0-2.7) Height (Feet): 5 Height (Inches): 5.00 Weight (Pounds): 185 General Appearance: no apparent distress, alert Cardiovascular: normal rate Respiratory/Chest: normal breath sounds, no respiratory distress Abdominal Exam: normal bowel sounds, non tender, soft Extremities: normal range of motion - evaluated by Priscila Chu N.P. Jul 09, 2016 09:59
[2016-07-09 11:21] VITALS: BP 134/72
--- NOTE | 2016-07-09 11:54 | Pulmonology Progress Note ---
Assessment/Plan Problems: (1) Chest pain (2) Renal failure (3) Anemia (4) Diabetes mellitus (5) Hypercholesteremia (6) HTN (hypertension) Assessment/Plan stress study results pending acute ME ruled out watch bun/creatinine f/u by renal watch bp dc planning Subjective ROS Limited/Unobtainable: No Interval Events: asymtomatic Allergies: Coded Allergies: PENICILLIN G (Verified Allergy, Intermediate, 07/04/16) Verified on 07/03/2016 from [facility] ADENOSINE (Verified Adverse Reaction, Unknown, heart block, 07/05/16) developed 2nd degree heart block during Adenosine stress test. Test stopped Objective Last 24 Hour Vital Signs Date Time Temp Pulse Resp B/P Pulse Ox O2 Delivery O2 Flow Rate FiO2 07/09/16 11:21 97.2 64 18 134/72 99 Room Air 07/09/16 09:00 92 130/77 07/09/16 09:00 130/77 07/09/16 07:55 97.3 66 18 113/55 99 Room Air 07/09/16 04:10 97.7 69 20 109/57 100 Room Air 07/09/16 04:00 64 07/09/16 00:25 98.0 61 20 125/59 99 Room Air 07/09/16 00:00 68 07/08/16 21:26 59 137/70 07/08/16 20:00 55 07/08/16 20:00 97.7 66 21 137/63 100 Room Air 07/08/16 16:00 97.8 79 20 141/64 99 Room Air 07/08/16 16:00 48 07/08/16 12:00 Intake and Output 07/08/16 07/09/16 19:00 07:00 Intake Total 200 ml 260 ml Output Total 500 ml 700 ml Balance -300 ml -440 ml Intake Oral 200 ml 260 ml Output Urine Total 500 ml 700 ml # Voids 2 General Appearance: WD/WN HEENT: normocephalic, atraumatic Respiratory/Chest: chest wall non-tender, lungs clear Breasts: no masses Cardiovascular: normal peripheral pulses Abdomen: normal bowel sounds, soft, non tender Extremities: no cyanosis Skin: no rash Neurologic/Psychiatric: 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-XII 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 normal Laboratory Tests 07/09/16 06:50: White Blood Count 6.7, Red Blood Count 3.10L, Hemoglobin 9.3L, Hematocrit 28.2L , Mean Corpuscular Volume 91, Mean Corpuscular Hemoglobin 30.1, Mean Corpuscular Hemoglobin Concent 33.1, Red Cell Distribution Width 12.5, Platelet Count 247, Mean Platelet Volume 6.8, Neutrophils (%) (Auto) 51.2, Lymphocytes (% ) (Auto) 33.9, Monocytes (%) (Auto) 9.4, Eosinophils (%) (Auto) 4.6H, Basophils (%) (Auto) 1.0, Sodium Level 140, Potassium Level 4.9, Chloride Level 106, Carbon Dioxide Level 18L, Anion Gap 16H, Blood Urea Nitrogen 31H, Creatinine 3.0H, Estimat Glomerular Filtration Rate , Glucose Level 86, Calcium Level 9.1, Phosphorus Level 4.0, Magnesium Level 2.1, Total Bilirubin 0.2, Aspartate Amino Transf (AST/SGOT) 17, Alanine Aminotransferase (ALT/SGPT) 11, Alkaline Phosphatase 71, Total Protein 6.3L, Albumin 3.5, Globulin 2.8, Albumin/Globulin Ratio 1.2 Current Medications Medications (Trade) Dose Ordered Sig/Bryce Route PRN Reason Start Time Stop Time Status Last Admin Dose Admin Acetaminophen (Tylenol) 650 mg Q4H PRN ORAL fever 07/05/16 06:15 08/04/16 06:14 Aspirin (ASA) 81 mg DAILY ORAL 07/05/16 09:00 08/04/16 08:59 07/09/16 09:00 Atorvastatin Calcium (Lipitor) 20 mg BEDTIME ORAL 07/05/16 21:00 08/04/16 20:59 07/08/16 21:11 Clonidine HCl (Catapres) 0.1 mg Q4H PRN ORAL hypertension 07/05/16 18:15 08/04/16 18:14 07/08/16 05:37 Clopidogrel Bisulfate (Plavix) 75 mg DAILY ORAL 07/05/16 09:00 08/04/16 08:59 07/09/16 09:00 Dextrose (Dextrose 50%) STAT PRN IV Hypoglycemia 07/05/16 06:15 08/04/16 06:14 Docusate Sodium (Colace) 100 mg THREE TIMES A DAY ORAL 07/05/16 13:00 08/04/16 12:59 07/09/16 09:00 Heparin Sodium (Porcine) (Heparin 5000 units/ml) 5,000 units EVERY 12 HOURS SUBQ 07/05/16 09:00 08/04/16 08:59 07/09/16 09:00 Insulin Aspart (NovoLOG) BEFORE MEALS AND HS SUBQ 07/05/16 06:30 08/04/16 06:29 07/08/16 21:42 Insulin Detemir (Levemir) 10 units BEDTIME SUBQ 07/05/16 21:00 08/04/16 20:59 07/08/16 21:41 Irbesartan (Avapro) 150 mg DAILY ORAL 07/05/16 09:00 08/04/16 08:59 07/09/16 09:00 Lactulose (Cephulac) 15 gm BID ORAL 07/09/16 18:00 08/08/16 17:59 Morphine Sulfate (Morphine Sulfate) 2 mg Q4H PRN IVP severe Pain (Pain Scale 7-10) 07/05/16 05:00 07/12/16 04:59 Nifedipine (Procardia XL) 60 mg Q12HR ORAL 07/08/16 09:00 08/07/16 08:59 07/09/16 09:00 Nitroglycerin (Ntg) 0.4 mg Q5M X 3 DOSES PRN SL Prn Chest Pain 07/05/16 03:30 08/04/16 03:29 Ondansetron HCl (Zofran) 4 mg Q6H PRN IVP Nausea & Vomiting 07/05/16 06:15 08/04/16 06:14 Pantoprazole (Protonix) 40 mg DAILY ORAL 07/07/16 13:00 08/06/16 12:59 07/09/16 09:33 Polyethylene Glycol (Miralax) 17 gm BEDTIME ORAL 07/05/16 21:00 08/04/16 20:59 07/06/16 21:20 Polyethylene Glycol (Miralax) 17 gm HSPRN PRN ORAL Constipation 07/05/16 06:15 08/04/16 06:14 Temazepam (Restoril) 15 mg HSPRN PRN ORAL Insomnia 07/05/16 06:15 07/12/16 06:14 DANNY REYES Jul 09, 2016 11:53
--- NOTE | 2016-07-09 13:40 | General Progress Note ---
Assessment/Plan Status: stable Status Narrative Cr unchanged at 3 Assessment/Plan status; Renal failure likely chronic due to long history of DM and HTN UA: 3+ Protein- Evidence of UTI Admitted with chest pain, high risk for CAD. other conditions: 1. Chronic constipation. 2. Hypertension. 3. Diabetes. 4. Chronic renal insufficiency per patient. 5. Anemia per patient. Past surgeries: 1. Tubal ligation. 2. Hysterectomy. Plan: stop IV fluid- check 24 h urine for CrCl- being collected adjust BP meds- po Protonix Monitor renal parameters- check urine analysis and urine studies- Avoid nephrotoxics- per orders JOHN: Equivocal mild increased renal echogenicity and renal cortical thinning, if real could indicate early medical renal disease Negative for hydronephrosis. Subjective ROS Limited/Unobtainable: No Constitutional: Reports: malaise Allergies: Coded Allergies: PENICILLIN G (Verified Allergy, Intermediate, 07/04/16) Verified on 07/03/2016 from [facility] ADENOSINE (Verified Adverse Reaction, Unknown, heart block, 07/05/16) developed 2nd degree heart block during Adenosine stress test. Test stopped Objective Last 24 Hour Vital Signs Date Time Temp Pulse Resp B/P Pulse Ox O2 Delivery O2 Flow Rate FiO2 07/09/16 11:21 97.2 64 18 134/72 99 Room Air 07/09/16 09:00 92 130/77 07/09/16 09:00 130/77 07/09/16 07:55 97.3 66 18 113/55 99 Room Air 07/09/16 04:10 97.7 69 20 109/57 100 Room Air 07/09/16 04:00 64 07/09/16 00:25 98.0 61 20 125/59 99 Room Air 07/09/16 00:00 68 07/08/16 21:26 59 137/70 07/08/16 20:00 55 07/08/16 20:00 97.7 66 21 137/63 100 Room Air 07/08/16 16:00 97.8 79 20 141/64 99 Room Air 07/08/16 16:00 48 Intake and Output 07/08/16 07/09/16 19:00 07:00 Intake Total 200 ml 260 ml Output Total 500 ml 700 ml Balance -300 ml -440 ml Intake Oral 200 ml 260 ml Output Urine Total 500 ml 700 ml # Voids 2 Laboratory Tests 07/09/16 06:50: White Blood Count 6.7, Red Blood Count 3.10L, Hemoglobin 9.3L, Hematocrit 28.2L , Mean Corpuscular Volume 91, Mean Corpuscular Hemoglobin 30.1, Mean Corpuscular Hemoglobin Concent 33.1, Red Cell Distribution Width 12.5, Platelet Count 247, Mean Platelet Volume 6.8, Neutrophils (%) (Auto) 51.2, Lymphocytes (% ) (Auto) 33.9, Monocytes (%) (Auto) 9.4, Eosinophils (%) (Auto) 4.6H, Basophils (%) (Auto) 1.0, Sodium Level 140, Potassium Level 4.9, Chloride Level 106, Carbon Dioxide Level 18L, Anion Gap 16H, Blood Urea Nitrogen 31H, Creatinine 3.0H, Estimat Glomerular Filtration Rate , Glucose Level 86, Calcium Level 9.1, Phosphorus Level 4.0, Magnesium Level 2.1, Total Bilirubin 0.2, Aspartate Amino Transf (AST/SGOT) 17, Alanine Aminotransferase (ALT/SGPT) 11, Alkaline Phosphatase 71, Total Protein 6.3L, Albumin 3.5, Globulin 2.8, Albumin/Globulin Ratio 1.2 Height (Feet): 5 Height (Inches): 5.00 Weight (Pounds): 185 General Appearance: no apparent distress Objective PE not changed HENRY BORDEN Jul 09, 2016 13:40
--- NOTE | 2016-07-09 15:13 | Discharge Summary ---
Discharge Summary Hospital Course Date of Admission Jul 04, 2016 at 03:40 Date of Discharge Admitting Diagnosis MARAH Bob is a 85 year old female who was admitted on Jul 04, 2016 at 03:40 for Chest Pain Hospital Course The patient was seen and examined at bedside and all new and available data was reviewed in the patients chart. Last 24 Hour Vital Signs Date Time Temp Pulse Resp B/P Pulse Ox O2 Delivery O2 Flow Rate FiO2 07/09/16 11:21 97.2 64 18 134/72 99 Room Air 07/09/16 09:00 92 130/77 07/09/16 09:00 130/77 07/09/16 07:55 97.3 66 18 113/55 99 Room Air 07/09/16 04:10 97.7 69 20 109/57 100 Room Air 07/09/16 04:00 64 07/09/16 00:25 98.0 61 20 125/59 99 Room Air 07/09/16 00:00 68 07/08/16 21:26 59 137/70 07/08/16 20:00 55 07/08/16 20:00 97.7 66 21 137/63 100 Room Air 07/08/16 16:00 97.8 79 20 141/64 99 Room Air 07/08/16 16:00 48 General Appearance: WD/WN, no apparent distress, alert EENT: PERRL/EOMI, normal ENT inspection Neck: non-tender, normal alignment, supple, normal inspection Cardiovascular: normal peripheral pulses, normal rate, regular rhythm, no gallop/murmur, no JVD Respiratory/Chest: chest wall non-tender, lungs clear, normal breath sounds, no respiratory distress, no accessory muscle use Abdomen: normal bowel sounds, non tender, soft, no organomegaly, no mass Extremities: normal range of motion, non-tender 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 (Patient was seen earlier today. Signature timestamp does not reflect patient encounter time) Joe Angeles MD Discharge Discharge Disposition Patient was discharged to Discharge Diagnoses: Joe Angeles MD Jul 09, 2016 15:13
[2016-07-09 16:00] VITALS: BP 110/62
--- NOTE | 2016-07-09 17:59 | Cardiac Electrophysiology PN ---
Assessment/Plan Assessment/Plan 1. Chest pain. Ruled out for myocardial infarction. Echocardiogram showed normal left ventricular systolic function. Dobutamine Cardiolite showed no significant ischemia. 2. Hyperlipidemia, on Lipitor. 3. Hypertension, on Procardia XL 90 and Avapro 150 mg daily 4. Renal failure. Creatinine of 2.7. 5. Diabetes. 6. Anemia. CARROL RN OK to DC from my perspective Subjective Subjective No chest pain, SOB or arrhythmias on tele. Dobutamine Cardiolite showed no significant ischemia.Expecting DC with home health. Objective Last 24 Hour Vital Signs Date Time Temp Pulse Resp B/P Pulse Ox O2 Delivery O2 Flow Rate FiO2 07/09/16 16:00 97.9 62 21 110/62 100 Room Air 07/09/16 11:21 97.2 64 18 134/72 99 Room Air 07/09/16 09:30 71 07/09/16 09:00 92 130/77 07/09/16 09:00 130/77 07/09/16 09:00 65 07/09/16 07:55 97.3 66 18 113/55 99 Room Air 07/09/16 04:10 97.7 69 20 109/57 100 Room Air 07/09/16 04:00 64 07/09/16 00:25 98.0 61 20 125/59 99 Room Air 07/09/16 00:00 68 07/08/16 21:26 59 137/70 07/08/16 20:00 55 07/08/16 20:00 97.7 66 21 137/63 100 Room Air Intake and Output 07/08/16 07/09/16 19:00 07:00 Intake Total 200 ml 260 ml Output Total 500 ml 700 ml Balance -300 ml -440 ml Intake Oral 200 ml 260 ml Output Urine Total 500 ml 700 ml # Voids 2 Laboratory Tests Test 07/09/16 06:50 White Blood Count 6.7 K/UL (4.8-10.8) Red Blood Count 3.10 M/UL (4.20-5.40) L Hemoglobin 9.3 G/DL (12.0-16.0) L Hematocrit 28.2 % (37.0-47.0) L Mean Corpuscular Volume 91 FL (80-99) Mean Corpuscular Hemoglobin 30.1 PG (27.0-31.0) Mean Corpuscular Hemoglobin Concent 33.1 G/DL (32.0-36.0) Red Cell Distribution Width 12.5 % (11.6-14.8) Platelet Count 247 K/UL (150-450) Mean Platelet Volume 6.8 FL (6.5-10.1) Neutrophils (%) (Auto) 51.2 % (45.0-75.0) Lymphocytes (%) (Auto) 33.9 % (20.0-45.0) Monocytes (%) (Auto) 9.4 % (1.0-10.0) Eosinophils (%) (Auto) 4.6 % (0.0-3.0) H Basophils (%) (Auto) 1.0 % (0.0-2.0) Sodium Level 140 mEQ/L (135-145) Potassium Level 4.9 mEQ/L (3.4-4.9) Chloride Level 106 mEQ/L (98-107) Carbon Dioxide Level 18 mEQ/L (20-30) L Anion Gap 16 (5-15) H Blood Urea Nitrogen 31 mg/dL (7-23) H Creatinine 3.0 mg/dL (0.5-0.9) H Estimat Glomerular Filtration Rate mL/min (>60) Glucose Level 86 mg/dL (74-106) Calcium Level 9.1 mg/dL (8.6-10.2) Phosphorus Level 4.0 mg/dL (2.5-4.8) Magnesium Level 2.1 mg/dL (1.7-2.5) Total Bilirubin 0.2 mg/dL (0.0-1.2) Aspartate Amino Transf (AST/SGOT) 17 U/L (5-40) Alanine Aminotransferase (ALT/SGPT) 11 U/L (3-33) Alkaline Phosphatase 71 U/L (35-104) Total Protein 6.3 g/dL (6.6-8.7) L Albumin 3.5 g/dL (3.5-5.2) Globulin 2.8 g/dL Albumin/Globulin Ratio 1.2 (1.0-2.7) Objective HEENT: Head and neck showed no JVD or carotid bruits. LUNGS: Clear. CARDIOVASCULAR: Shows regular S1 and S2 with no gallop or murmur. ABDOMEN: Soft and obese. EXTREMITIES: 1+ pitting edema. SU SHAFFER 27, 2017 17:59
[2016-07-09] MEDS ORDERED: Lactulose 20gm/30ml UDC ORAL SCH (18:00)
[2016-07-09] MEDS ORDERED: NS 275ml ONE (18:21)
[2016-07-09] MEDS ORDERED: Tubing IV Secondary IV ONE (18:21)
== END 2016-07-09 23:00 | disposition home health service (06) | DRG 313 ==
LOC: 2W 03:40 → 2E 07-05 02:22
DX: R07.9 Chest pain, unspecified (principal); E11.9 Type 2 diabetes mellitus without complications; D63.1 Anemia in chronic kidney disease; I08.1 Rheumatic disorders of both mitral and tricuspid valves; I12.9 Hypertensive chronic kidney disease with stage 1 through stage 4 chronic kidney disease, or unspecified chronic kidney disease; I44.1 Atrioventricular block, second degree; E78.5 Hyperlipidemia, unspecified; K59.00 Constipation, unspecified; Z88.0 Allergy status to penicillin; N18.9 Chronic kidney disease, unspecified; Z88.8 Allergy status to other drugs, medicaments and biological substances; Z79.4 Long term (current) use of insulin; Z79.02 Long term (current) use of antithrombotics/antiplatelets
CPT/HCPCS: 36415; 71010; 76700; 78452; 80048; 80053; 80061; 80076; 81001; 81050; 82150; 82270; 82378; 82550; 82575; 82607; 82728; 82746; 82962; 82977; 83036; 83540; 83550; 83690; 83735; 83880; 84100; 84156; 84443; 84484; 84550; 85025; 85610; 85730; 86140; 87086; 93017; 93306; 93970; J1815; S5561